=== PATIENT | female | born 1955 ===

== ENCOUNTER 2018-06-27 11:36 | Inpatient (IN) | payer MEDICARE, OTHER ==
[2018-06-27 11:37] VITALS: BMI 25.4
--- NOTE | 2018-06-27 12:34 | C.PDOC ---
History Of Present Illness 63 y/o female,w/PMhx of anemia, presents to the ER for low hemoglobin levels. Patient states that her PMD, , referred to the ER for possible blood transfusion. Patient reports that she was recently admitted in [facility] for similar symptoms. She notes that she currently undergoes dialysis on Mondays, Wednesdays, and Fridays. She states that she has some shortness of breath and feels tired.Denies having headache, dizziness, CP, fever, and chills. Time Seen by Provider: 06/27/18 12:07 Chief Complaint (Nursing): Abnormal Labs History Per: Patient History/Exam Limitations: no limitations Onset/Duration Of Symptoms: Days Current Symptoms Are (Timing): Still Present Severity: Moderate Reports Recently: Hospitalized (at [facility]) Past Medical History Reviewed: Historical Data, Nursing Documentation, Vital Signs Vital Signs: Last Vital Signs Temp 97.8 F 06/27/18 11:39 Pulse 95 H 06/27/18 11:39 Resp 18 06/27/18 11:39 BP 129/77 06/27/18 11:39 Pulse Ox 97 06/27/18 12:21 - Medical History PMH: Anemia, Anxiety, Arthritis, Bipolar Disorder, Colonic Polyps, Depression, Gastritis, HTN, Hypercholesterolemia, Hypothyroidism, Kidney Stones, Migraine, Chronic Kidney Disease Denies: Diabetes, Hepatitis Other Surgeries: Hx of surgeries - [facility] Procedures INDIVID PSYCHOTHERAP NEC (12/24/13) OTHER GROUP THERAPY (12/24/13) PACKED CELL TRANSFUSION (12/12/12) PSYCHIAT DRUG THERAP NEC (12/24/13) Family History: States: No Known Family Hx - Social History Hx Tobacco Use: No Hx Alcohol Use: No Hx Substance Use: No - Immunization History Hx Tetanus Toxoid Vaccination: No Hx Influenza Vaccination: No Hx Pneumococcal Vaccination: No Review Of Systems Except As Marked, All Systems Reviewed And Found Negative. Constitutional: Negative for: Fever, Chills Cardiovascular: Negative for: Chest Pain Respiratory: Positive for: Shortness of Breath Gastrointestinal: Negative for: Nausea, Vomiting Neurological: Positive for: Weakness Physical Exam - Physical Exam Appears: Non-toxic, No Acute Distress Skin: Normal Color, Warm, Dry Head: Atraumatic, Normacephalic Eye(s): bilateral: Normal Inspection Nose: Normal Oral Mucosa: Moist Neck: Supple Chest: Symmetrical Cardiovascular: Rhythm Regular Respiratory: Normal Breath Sounds, No Rales, No Rhonchi, No Wheezing Gastrointestinal/Abdominal: Normal Exam, Soft, No Tenderness, No Guarding, No Rebound Extremity: Normal ROM Neurological/Psych: Oriented x3, Normal Speech Gait: Unable To Assess ED Course And Treatment - Laboratory Results Result Diagrams: 06/27/18 12:37 1218 12:37 Lab Interpretation: Abnormal O2 Sat by Pulse Oximetry: 97 (RA) Pulse Ox Interpretation: Normal Progress Note: Patient sent in for blood transfusion for low Hcg. Typed for 2 units blood Reassessment Condition: Unchanged - Physician Consult Information Physician Contacted: Madisyn Richey Outcome Of Conversation: admit Medical Decision Making Medical Decision Making: Plan: --Labs --ECG --CXR --UA Disposition Discussed With : Madisyn Richey Doctor Will See Patient In The: Hospital - Disposition Disposition: HOSPITALIZED Disposition Time: 14:00 Condition: STABLE - POA Present On Arrival: None - Clinical Impression Clinical Impression: Anemia, ESRD (end stage renal disease) - PA / ARTIST COLOR SEPARATION / Resident Statement MD/DO has reviewed & agrees with the documentation as recorded. - Scribe Statement The provider has reviewed the documentation as recorded by the Hilaria Rizzo Provider Attestation All medical record entries made by the Amadoibe were at my direction and personally dictated by me. I have reviewed the chart and agree that the record accurately reflects my personal performance of the history, physical exam, medical decision making, and the department course for this patient. I have also personally directed, reviewed, and agree with the discharge instructions and disposition.
--- NOTE | 2018-06-27 12:38 | RAD ---
Date of service: 06/27/2018 HISTORY: SOB COMPARISON: Chest radiograph 08/17/2014. FINDINGS: LUNGS: Diminished inspiratory volumes. Limited atelectasis or infiltrate has developed at the left base with linear atelectasis identified lateral to it. Remaining lung beck are clear. PLEURA: No significant pleural effusion identified, no pneumothorax apparent. CARDIOVASCULAR: No aortic atherosclerotic calcification present. Normal cardiac size. No pulmonary vascular congestion. OSSEOUS STRUCTURES: No significant abnormalities. VISUALIZED UPPER ABDOMEN: Normal. OTHER FINDINGS: None. IMPRESSION: Interval left basilar airspace disease with associated linear atelectasis laterally.
[2018-06-27 12:44] LABS: BASO % 0.8 % (0.0-2.0); EOS # 0.1 K/uL (0.0-0.7); EOS % 0.9 % (0.0-4.0); LYMPH # 0.6 K/uL (1.0-4.3); LYMPH % 10.2 % (20.0-40.0); MEAN CELL VOLUME 94.9 fL (81.0-99.0); MEAN CORPUSCULAR HEMOGLOBIN 30.8 pg (27.0-31.0); MEAN CORPUSCULAR HGB CONC 32.5 g/dL (33.0-37.0); MEAN PLATELET VOLUME 9.9 fL (7.2-11.7); MONO # 0.3 K/uL (0.0-0.8); MONO % 5.9 % (0.0-10.0); NEUT # 4.9 K/uL (1.8-7.0); NEUT % 82.2 % (50.0-75.0); NRBC % 0.1 % (0.0-2.0); RBC 1.99 Mil/uL (3.80-5.20); RED CELL DISTRIBUTION WIDTH 15.5 % (11.5-14.5)
[2018-06-27 12:52] LABS: HEMOGLOBIN 6.1 g/dL (11.0-16.0)
[2018-06-27 12:54] LABS: ALB/GLOB RATIO 0.7 (1.0-2.1); ALBUMIN 3.1 g/dL (3.5-5.0); CALCIUM 8.1 mg/dl (8.6-10.4)
[2018-06-27 14:26] LABS: SQUAMOUS EPITHIAL 36 /hpf (0-5); URINE BACTERIA OCC (<OCC); URINE BILIRUBIN NEGATIVE (NEGATIVE); URINE BLOOD NEGATIVE (NEGATIVE); URINE CLARITY Hazy (Clear); URINE COLOR Yellow (YELLOW); URINE GLUCOSE (UA) NORMAL (Normal); URINE LEUKOCYTE ESTERASE 3+ Leu/uL (Negative); URINE PROTEIN 2+ mg/dL (NEGATIVE); URINE UROBILINOGEN NORMAL mg/dL (0.2-1.0)
--- NOTE | 2018-06-27 16:28 | CP.PCM.HP ---
History of Present Illness - History of Present Illness History of Present Illness: cc; Anemia HPI: I called patient to come to the hospital after a blood test that showed her hemoglobin to be 6. Pt was recently admittted to [facility] for urosepsis of a multidrugresistant organism. Pt was treated for two weeks with Metropenem. Pt reports she has been feeling very weak. Pt reports feeling fatigued, unsteady on her feet and some sob. PT denies blood in stool. She does not know what her hemoglobin was on discharge from [facility]. PHMX: Chronic Kidney disease Hypertension Hypercholesterolemia Anxiety Depression Splenomegaly Insomnia Peripheral vascular disease Diabetes Anemia Hypothyroidsm Thrombocytopenia Enlarge spleen Surgical Hx: Gastric Bypass Family Hx: Mother-Diabetes Father: [place] Sister: Parkinson Social Hx: Neg Smoke Neg ETOH Neg drugs Allergies: Iodine Medications: Atorvastatin 40 qd Famotidine 20 qd Renvela 800 tid Seroquel 300 qd Nephrocaps 1 qd Calcitrol 0.5 mcg qd flagyl 500 tid Cipro 250 bid Restoril 15 qhs Cholecalciferol 1 weekly bystolic 2.5 qd Neurontin 300 tid Levothyroxine 75 mcg qd Present on Admission - Present on Admission Any Indicators Present on Admission: No Review of Systems - Constitutional Constitutional: Fatigue, Malaise - EENT Eyes: absent: Blurred Vision Nose/Mouth/Throat: absent: Nasal Congestion - Cardiovascular Cardiovascular: absent: Chest Pain, Chest Pain with Activity - Respiratory Respiratory: Dyspnea. absent: Cough, Hemoptysis - Gastrointestinal Gastrointestinal: absent: Abdominal Pain, Belching, Hematochezia, Melena, Nausea, Temesmus, Vomiting - Genitourinary Genitourinary: absent: Urinary Urgency - Reproductive: Female Reproductive:Female: Vaginal Discharge (brown vaginal discharge.) Past Patient History - Past Medical History & Family History Past Medical History?: Yes - Past Social History Smoking Status: Never Smoked - CARDIAC Hx Hypercholesterolemia: Yes Hx Hypertension: Yes - PULMONARY Hx Respiratory Disorders: No Hx Tuberculosis: No - NEUROLOGICAL Hx Migraine: Yes - HEENT Hx HEENT Problems: Yes - RENAL Hx Chronic Kidney Disease: Yes Hx Kidney Stones: Yes - ENDOCRINE/METABOLIC Hx Hypothyroidism: Yes - HEMATOLOGICAL/ONCOLOGICAL Hx Anemia: Yes - INTEGUMENTARY Hx Dermatological Problems: No - MUSCULOSKELETAL/RHEUMATOLOGICAL Hx Arthritis: Yes - GASTROINTESTINAL Hx Gastritis: Yes - PSYCHIATRIC Hx Anxiety: Yes Hx Bipolar Disorder: Yes Hx Depression: Yes Hx Substance Use: No - SURGICAL HISTORY Hx Surgeries: Yes Hx Arteriovenous Shunt: Yes - ANESTHESIA Hx Anesthesia: Yes Hx Anesthesia Reactions: No Hx Malignant Hyperthermia: No Meds Allergies/Adverse Reactions: Allergies Allergy/AdvReac Type Severity Reaction Status Date / Time acetaminophen [From Percocet] Allergy Mild RASH Verified 06/27/18 11:44 codeine Allergy Mild RASH Verified 06/27/18 11:44 iodine Allergy Mild RASH Verified 06/27/18 11:44 oxycodone [From Percocet] Allergy Mild RASH Verified 06/27/18 11:44 seafood Allergy Mild RASH Uncoded 06/27/18 11:44 Physical Exam - Constitutional Appears: Non-toxic, No Acute Distress, Chronically Ill - Eye Exam Eye Exam: Normal appearance - ENT Exam ENT Exam: Mucous Membranes Moist - Neck Exam Neck exam: Negative for: Lymphadenopathy - Respiratory Exam Respiratory Exam: Clear to Auscultation Bilateral, NORMAL BREATHING PATTERN. absent: Accessory Muscle Use, Rales - Cardiovascular Exam Cardiovascular Exam: REGULAR RHYTHM, RRR, +S1, +S2. absent: JVD, Rubs - GI/Abdominal Exam GI & Abdominal Exam: Normal Bowel Sounds, Soft. absent: Tenderness - Rectal Exam Rectal Exam: absent: Black Stool, Bloody Stool - Extremities Exam Extremities exam: Positive for: normal inspection. Negative for: joint swelling, tenderness Results - Vital Signs Recent Vital Signs: Last Vital Signs Temp 98.3 F 06/27/18 15:00 Pulse 93 H 06/27/18 15:00 Resp 20 06/27/18 15:00 BP 123/73 06/27/18 15:00 Pulse Ox 98 06/27/18 15:00 - Labs Result Diagrams: 06/27/18 12:37 06/27/18 12:37 Labs: Laboratory Results - last 24 hr 06/27/18 06/27/18 06/27/18 12:37 12:37 12:37 WBC 6.0 RBC 1.99 L Hgb 6.1 L* D Hct 18.9 L MCV 94.9 MCH 30.8 MCHC 32.5 L RDW 15.5 H Plt Count 138 MPV 9.9 Neut % (Auto) 82.2 H Lymph % (Auto) 10.2 L [place] % (Auto) 5.9 Eos % (Auto) 0.9 Baso % (Auto) 0.8 Neut # (Auto) 4.9 Lymph # (Auto) 0.6 L [place] # (Auto) 0.3 Eos # (Auto) 0.1 Baso # (Auto) 0.0 Sodium 135 Potassium 3.9 Chloride 94 L Carbon Dioxide 29 Anion Gap 17 BUN 27 H Creatinine 6.2 H Est GFR ( Amer) 8 Est GFR (Non-Af Amer) 7 Random Glucose 107 H Calcium 8.1 L Total Bilirubin 0.8 AST 19 ALT 12 Alkaline Phosphatase 78 Total Protein 7.3 Albumin 3.1 L D Globulin 4.2 H Albumin/Globulin Ratio 0.7 L Urine Color Urine Clarity Urine pH Ur Specific [place] Urine Protein Urine Glucose (UA) Urine Ketones Urine Blood Urine Nitrate Urine Bilirubin Urine Urobilinogen Ur Leukocyte Esterase Urine WBC (Auto) Urine RBC (Auto) Ur Squamous Epith Cells Urine Bacteria Blood Type AB POSITIVE Antibody Screen Negative 06/27/18 14:10 WBC RBC Hgb Hct MCV MCH MCHC RDW Plt Count MPV Neut % (Auto) Lymph % (Auto) [place] % (Auto) Eos % (Auto) Baso % (Auto) Neut # (Auto) Lymph # (Auto) [place] # (Auto) Eos # (Auto) Baso # (Auto) Sodium Potassium Chloride Carbon Dioxide Anion Gap BUN Creatinine Est GFR ( Amer) Est GFR (Non-Af Amer) Random Glucose Calcium Total Bilirubin AST ALT Alkaline Phosphatase Total Protein Albumin Globulin Albumin/Globulin Ratio Urine Color Yellow Urine Clarity Hazy Urine pH 8.0 Ur Specific [place] 1.004 Urine Protein 2+ H Urine Glucose (UA) Normal Urine Ketones Negative Urine Blood Negative Urine Nitrate Negative Urine Bilirubin Negative Urine Urobilinogen Normal Ur Leukocyte Esterase 3+ H Urine WBC (Auto) 108 H Urine RBC (Auto) 3 Ur Squamous Epith Cells 36 H Urine Bacteria Occ H Blood Type Antibody Screen Assessment & Plan - Assessment and Plan (Free Text) Assessment: severe symptomatic anemia with hemoglobin of 6 admit transfuse during diallyisis hematology eval guia iron and b12 studies ( pt wth ho gastric sleeve) bp diabetes renal cont current care vaginitis flagyl urine; colonized recent two weeks of iv metropenan at [facility]
--- NOTE | 2018-06-27 17:35 | CP.PCM.CON ---
History of Present Illness - History of Present Illness History of Present Illness: Nephrology Consultation Note: Assessment: Stable Severe symptomatic Anemia Hypertensive Chronic Kidney Disease (I12.0) End stage renal disease (N18.6) dependence on hemodialysis (Z99.2) (MWF) via AVF Anemia (D64.9), Hyperphosphatemia (E83.39), Secondary Hyperparathyroidism (E21.1), HTN (I12.0) Plan: Will plan for HD today as ordered. Continue with Nephrovite 1 tab/day. PRBC as needed for anemia. added on ZENA with dialysis as last Hb 6. anemia work up as ordered. heme consult pending. may need GI input too Continue with phos binders, last phos level; check Continue with calcitriol daily BP control with meds as ordered. Patient not on RAAS beba may add if needed Glycemic control, Dialysis consistent diet Further work up/management as per primary team Dose meds/antibiotics (if needed) for ESRD status. Avoid fleets enema/magnesium based laxatives. Thanks for allowing me to participate in care of your patient. Will follow patient with you. Please call if any Qs Dr Alcon Prabhakar Office: [phone] Chief Complaint;anemia HPI: Pt is a 63 F with hx of ESRD on hemodialysis (MWF) via AVF , last dialysis mon, chronic anemia, hyperphosphatemia, secondary hyperparathyroidism, hyper tension presented with complaints of anemnia Renal consult requested for ESRD management. pt was rcently admitted to [facility] for MDR UTI ROS: feels fatigued and tired Cardiovascular: No chest pain. Pulmonary: c/o shortness of breath on exertion Gastrointestinal: denies abdominal pain No nausea. No vomiting. Genitourinary: No pain while urinating. Denies blood in urine. All other negative except as mentioned in HPI Physical Examination: General Appearance: Comfortable, in no acute respiratory distress, co-operative . obese Vitals reviewed and noted as below Head; Atraumatic, normocephalic ENT: no ulcers no thrush. Tongue is midline. Oropharynx: no rash or ulcers. EYES: Pupils are equal, round and reactive to light accommodation. Eye muscles and extraocular movement intact. Sclera is anicteric. Neck; supple no lymphadenopathy, no thyromegaly or bruit Lungs: Normal respiratory rate/effort. Breath sounds bilateral equal and clear Heart: Normal rate. s1s2 normal. No rub or gallop. Extremities: no edema. No varicose veins Neurological: Patient is alert, awake and oriented to person, place and time. No focal deficit. Strength bilateral appropriate and equal Skin: Warm and dry. Normal turgor. No rash. Palpitation: Normal elasticity for age Abdomen: Abdomen is soft. Bowel sounds +. There is no abdominal tenderness, no guarding/rigidity or organomegaly Psych: normal insight and normal affect/mood MSK: no joint tenderness or swelling. Digits and nails normal, no deformity : kidney or bladder not palpable Access: AVF Labs/imaging reviewed. Past medical history, past surgical history, family history, social history, allergy reviewed and noted as below Family Hx: family hx of HD + but pt not aware about reason. rest Non contributory Past Patient History - Past Medical History & Family History Past Medical History?: Yes - Past Social History Smoking Status: Never Smoked - CARDIAC Hx Hypercholesterolemia: Yes Hx Hypertension: Yes - PULMONARY Hx Respiratory Disorders: No Hx Tuberculosis: No - NEUROLOGICAL Hx Migraine: Yes - HEENT Hx HEENT Problems: Yes - RENAL Hx Chronic Kidney Disease: Yes Hx Kidney Stones: Yes - ENDOCRINE/METABOLIC Hx Hypothyroidism: Yes - HEMATOLOGICAL/ONCOLOGICAL Hx Anemia: Yes - INTEGUMENTARY Hx Dermatological Problems: No - MUSCULOSKELETAL/RHEUMATOLOGICAL Hx Arthritis: Yes - GASTROINTESTINAL Hx Gastritis: Yes - PSYCHIATRIC Hx Anxiety: Yes Hx Bipolar Disorder: Yes Hx Depression: Yes Hx Substance Use: No - SURGICAL HISTORY Hx Surgeries: Yes Hx Arteriovenous Shunt: Yes - ANESTHESIA Hx Anesthesia: Yes Hx Anesthesia Reactions: No Hx Malignant Hyperthermia: No Meds Allergies/Adverse Reactions: Allergies Allergy/AdvReac Type Severity Reaction Status Date / Time acetaminophen [From Percocet] Allergy Mild RASH Verified 06/27/18 11:44 codeine Allergy Mild RASH Verified 06/27/18 11:44 iodine Allergy Mild RASH Verified 06/27/18 11:44 oxycodone [From Percocet] Allergy Mild RASH Verified 06/27/18 11:44 seafood Allergy Mild RASH Uncoded 06/27/18 11:44 - Medications Medications: Current Medications Diphenhydramine HCl (Benadryl) 25 mg PO ONCE PRN PRN Reason: premedication transfusion Results - Vital Signs Recent Vital Signs: Last Vital Signs Temp 98.3 F 06/27/18 15:00 Pulse 93 H 06/27/18 15:00 Resp 20 06/27/18 15:00 BP 123/73 06/27/18 15:00 Pulse Ox 98 06/27/18 15:00 - Labs Result Diagrams: 06/27/18 12:37 06/27/18 12:37 Labs: Laboratory Results - last 24 hr 06/27/18 06/27/18 06/27/18 12:37 12:37 12:37 WBC 6.0 RBC 1.99 L Hgb 6.1 L* D Hct 18.9 L MCV 94.9 MCH 30.8 MCHC 32.5 L RDW 15.5 H Plt Count 138 MPV 9.9 Neut % (Auto) 82.2 H Lymph % (Auto) 10.2 L [place] % (Auto) 5.9 Eos % (Auto) 0.9 Baso % (Auto) 0.8 Neut # (Auto) 4.9 Lymph # (Auto) 0.6 L [place] # (Auto) 0.3 Eos # (Auto) 0.1 Baso # (Auto) 0.0 Sodium 135 Potassium 3.9 Chloride 94 L Carbon Dioxide 29 Anion Gap 17 BUN 27 H Creatinine 6.2 H Est GFR ( Amer) 8 Est GFR (Non-Af Amer) 7 Random Glucose 107 H Calcium 8.1 L Total Bilirubin 0.8 AST 19 ALT 12 Alkaline Phosphatase 78 Total Protein 7.3 Albumin 3.1 L D Globulin 4.2 H Albumin/Globulin Ratio 0.7 L Urine Color Urine Clarity Urine pH Ur Specific [place] Urine Protein Urine Glucose (UA) Urine Ketones Urine Blood Urine Nitrate Urine Bilirubin Urine Urobilinogen Ur Leukocyte Esterase Urine WBC (Auto) Urine RBC (Auto) Ur Squamous Epith Cells Urine Bacteria Blood Type AB POSITIVE Antibody Screen Negative 06/27/18 14:10 WBC RBC Hgb Hct MCV MCH MCHC RDW Plt Count MPV Neut % (Auto) Lymph % (Auto) [place] % (Auto) Eos % (Auto) Baso % (Auto) Neut # (Auto) Lymph # (Auto) [place] # (Auto) Eos # (Auto) Baso # (Auto) Sodium Potassium Chloride Carbon Dioxide Anion Gap BUN Creatinine Est GFR ( Amer) Est GFR (Non-Af Amer) Random Glucose Calcium Total Bilirubin AST ALT Alkaline Phosphatase Total Protein Albumin Globulin Albumin/Globulin Ratio Urine Color Yellow Urine Clarity Hazy Urine pH 8.0 Ur Specific [place] 1.004 Urine Protein 2+ H Urine Glucose (UA) Normal Urine Ketones Negative Urine Blood Negative Urine Nitrate Negative Urine Bilirubin Negative Urine Urobilinogen Normal Ur Leukocyte Esterase 3+ H Urine WBC (Auto) 108 H Urine RBC (Auto) 3 Ur Squamous Epith Cells 36 H Urine Bacteria Occ H Blood Type Antibody Screen
--- NOTE | 2018-06-27 17:41 | CP.PCM.PN ---
Subjective - Date & Time of Evaluation Date of Evaluation: 06/27/18 Time of Evaluation: 17:40 - Subjective Subjective: DIALYSIS NOTE pt seen during HD tolerating dialysis well getting PRBC during HD epogen with HD anemia work up as ordered d/w dialysis nursing staff Objective - Vital Signs/Intake and Output Vital Signs (last 24 hours): Temp Pulse Resp BP Pulse Ox 97.9 F 77 18 138/87 100 06/27/18 17:17 06/27/18 17:17 06/27/18 17:17 06/27/18 17:17 06/27/18 17:15 Intake and Output: 06/27/18 06/27/18 06:59 18:59 Intake Total 0 Balance 0 - Medications Medications: Current Medications Calcitriol (Rocaltrol) 0.5 mcg PO DAILY [facility] Diphenhydramine HCl (Benadryl) 25 mg PO ONCE PRN PRN Reason: premedication transfusion Last Admin: 06/27/18 17:00 Dose: 25 mg Epoetin Zeke (Procrit) 20,000 unit IV MWF [facility] Ferrous Sulfate (Feosol) 325 mg PO DAILY [facility] Folic Acid (Folic Acid) 1 mg PO DAILY [facility] Home Med (Mv-Mins No.50/Iron,Carb/Folic [Vol-Tab Rx Tablet]) 1 tab PO DAILY [facility] Home Med (Nebivolol Hcl [Bystolic]) 2.5 mg PO DAILY [facility] Levothyroxine Sodium (Synthroid) 75 mcg PO DAILY@0630 [facility] Magnesium Oxide (Mag-Ox) 400 mg PO DAILY [facility] Metronidazole (Flagyl) 500 mg PO Q8 [facility]; Protocol Rosuvastatin Calcium (Crestor) 10 mg PO HS [facility] Sevelamer Carbonate (Renvela) 800 mg PO BID [facility] Venlafaxine HCl (Effexor Xr) 150 mg PO DAILY [facility] - Labs Labs: 06/27/18 12:37 06/27/18 12:37
[2018-06-27 18:48] LABS: IRON 43 ug/dL (37-170)
[2018-06-27 18:58] LABS: % IRON SATURATION 27 (20-55); TOTAL IRON BINDING CAPACITY 161 ug/dL (250-450)
[2018-06-27] MEDS: Epoetin Alfa Dialysis 20000 UNIT/ML Inj IV SCH (19:31)
[2018-06-27 19:40] LABS: FOLATE 5.9 ng/mL
[2018-06-27 20:15] LABS: HEPATITIS B SURFACE AG Negative (NEGATIVE)
[2018-06-27 20:33] LABS: HEPATITIS C ANTIBODY NEGATIVE (NEGATIVE)
[2018-06-28] MEDS: Levothyroxine 75 MCG TAB PO SCH (06:17)
[2018-06-28 06:47] LABS: HEMOGLOBIN 8.3 g/dL (11.0-16.0); MEAN CELL VOLUME 92.3 fL (81.0-99.0); MEAN CORPUSCULAR HEMOGLOBIN 30.9 pg (27.0-31.0); MEAN CORPUSCULAR HGB CONC 33.5 g/dL (33.0-37.0); MEAN PLATELET VOLUME 9.1 fL (7.2-11.7); RBC 2.68 Mil/uL (3.80-5.20); RED CELL DISTRIBUTION WIDTH 16.2 % (11.5-14.5); WHITE BLOOD COUNT 7.6 K/uL (4.8-10.8)
[2018-06-28] MEDS: Magnesium Oxide 400 mg Tab UD PO SCH (09:33)
[2018-06-28] MEDS: Venlafaxine 150 mg ER Cap PO SCH (09:33)
--- NOTE | 2018-06-28 10:54 | CARD ---
APPROVED REPORT Date of service: 06/27/2018 EKG Measurement Heart [id number] <Conclusion> Normal sinus rhythm Normal ECG
--- NOTE | 2018-06-28 12:10 | CP.PCM.PN ---
Subjective - Date & Time of Evaluation Date of Evaluation: 06/28/18 Time of Evaluation: 12:08 - Subjective Subjective: Nephrology Consultation Note: Assessment: Stable Severe symptomatic Anemia Hypertensive Chronic Kidney Disease (I12.0) End stage renal disease (N18.6) dependence on hemodialysis (Z99.2) (MWF) via AVF Anemia (D64.9), Hyperphosphatemia (E83.39), Secondary Hyperparathyroidism (E21.1), HTN (I12.0) Plan: Will plan for HD MWF as ordered. Continue with Nephrovite 1 tab/day. PRBC as needed for anemia. added on ZENA with dialysis as last Hb 6. anemia work up as ordered. heme consult pending. may need GI input too. no IV iron ordered d ue to high ferritin Continue with phos binders, last phos level; check Continue with calcitriol daily BP control with meds as ordered. Patient not on RAAS beba may add if needed Glycemic control, Dialysis consistent diet Further work up/management as per primary team Dose meds/antibiotics (if needed) for ESRD status. Avoid fleets enema/magnesium based laxatives. dulcolax 10 mg today Thanks for allowing me to participate in care of your patient. Will follow patient with you. Please call if any Qs Dr Alcon Prabhakar Office: [phone] Chief Complaint;anemia HPI: Pt is a 63 F with hx of ESRD on hemodialysis (MWF) via AVF , last dialysis mon, chronic anemia, hyperphosphatemia, secondary hyperparathyroidism, hypertension presented with complaints of anemnia Renal consult requested for ESRD management. pt was recently admitted to [facility] for [place] UTI ROS: feels better Cardiovascular: No chest pain. Pulmonary: no shortness of breath Gastrointestinal: c/o abdominal pain with last BM 2 days ago No nausea. No vomiting. Genitourinary: No pain while urinating. Denies blood in urine. All other negative except as mentioned in HPI Physical Examination: General Appearance: Comfortable, in no acute respiratory distress, co-operative . obese Vitals reviewed and noted as below Head; Atraumatic, normocephalic ENT: no ulcers no thrush. Tongue is midline. Oropharynx: no rash or ulcers. EYES: Pupils are equal, round and reactive to light accommodation. Eye muscles and extraocular movement intact. Sclera is anicteric. Neck; supple no lymphadenopathy, no thyromegaly or bruit Lungs: Normal respiratory rate/effort. Breath sounds bilateral equal and clear Heart: Normal rate. s1s2 normal. No rub or gallop. Extremities: no edema. No varicose veins Neurological: Patient is alert, awake and oriented to person, place and time. No focal deficit. Strength bilateral appropriate and equal Skin: Warm and dry. Normal turgor. No rash. Palpitation: Normal elasticity for age Abdomen: Abdomen is soft. Bowel sounds +. There is mild LLq abdominal tenderness , no guarding/rigidity or organomegaly Psych: normal insight and normal affect/mood MSK: no joint tenderness or swelling. Digits and nails normal, no deformity : kidney or bladder not palpable Access: AVF Labs/imaging reviewed. Past medical history, past surgical history, family history, social history, allergy reviewed and noted as below Family Hx: family hx of HD + but pt not aware about reason. rest Non contributory Objective - Vital Signs/Intake and Output Vital Signs (last 24 hours): Temp Pulse Resp BP Pulse Ox 98.3 F 82 20 134/81 95 06/28/18 07:25 06/28/18 09:35 06/28/18 07:25 06/28/18 09:35 06/28/18 07:25 Intake and Output: 06/28/18 06/28/18 06:59 18:59 Intake Total 325 Balance 325 - Medications Medications: Current Medications Acetaminophen (Tylenol 325mg Tab) 650 mg PO Q6 PRN PRN Reason: Pain, moderate (4-7) Last Admin: 06/28/18 11:49 Dose: 650 mg Calcitriol (Rocaltrol) 0.5 mcg PO DAILY [facility] Last Admin: 06/28/18 09:33 Dose: 0.5 mcg Diphenhydramine HCl (Benadryl) 25 mg PO ONCE PRN PRN Reason: premedication transfusion Last Admin: 06/27/18 17:00 Dose: 25 mg Epoetin Zeke (Procrit) 20,000 unit IV MWF [facility] Last Admin: 06/27/18 19:31 Dose: 20,000 unit Ferrous Sulfate (Feosol) 325 mg PO DAILY [facility] Last Admin: 06/28/18 09:32 Dose: 325 mg Folic Acid (Folic Acid) 1 mg PO DAILY [facility] Last Admin: 06/28/18 09:32 Dose: 1 mg Home Med (Mv-Mins No.50/Iron,Carb/Folic [Vol-Tab Rx Tablet]) 1 tab PO DAILY [facility] Levothyroxine Sodium (Synthroid) 75 mcg PO DAILY@0630 [facility] Last Admin: 06/28/18 06:17 Dose: 75 mcg Magnesium Oxide (Mag-Ox) 400 mg PO DAILY [facility] Last Admin: 06/28/18 09:33 Dose: 400 mg Metronidazole (Flagyl) 500 mg PO Q8 [facility]; Protocol Last Admin: 06/28/18 06:17 Dose: 500 mg Nebivolol (Bystolic) 2.5 mg PO DAILY [facility] Last Admin: 06/28/18 09:33 Dose: 2.5 mg Quetiapine Fumarate (Seroquel) 200 mg PO HS [facility] Rosuvastatin Calcium (Crestor) 10 mg PO HS [facility] Last Admin: 06/27/18 21:46 Dose: 10 mg Sevelamer Carbonate (Renvela) 800 mg PO BID [facility] Last Admin: 06/28/18 09:33 Dose: 800 mg Venlafaxine HCl (Effexor Xr) 150 mg PO DAILY [facility] Last Admin: 06/28/18 09:33 Dose: 150 mg Zolpidem Tartrate (Ambien) 5 mg PO HS PRN PRN Reason: Insomnia - Labs Labs: 06/28/18 06:40 06/27/18 12:37
[2018-06-28] MEDS ORDERED: Bisacodyl 5mg EC Tab PO PRN (12:50)
[2018-06-28] MEDS ORDERED: Bisacodyl 5mg EC Tab PO ONE (12:51)
--- NOTE | 2018-06-28 13:53 | CP.PCM.PN ---
Subjective - Date & Time of Evaluation Date of Evaluation: 06/28/18 Time of Evaluation: 09:00 - Subjective Subjective: Pt feeling a lot better this AM pt had two units prbc with dialyisis states she had endoscopies with dr. Spencer two years ago Objective - Vital Signs/Intake and Output Vital Signs (last 24 hours): Temp Pulse Resp BP Pulse Ox 98.3 F 82 20 134/81 95 06/28/18 07:25 06/28/18 09:35 06/28/18 07:25 06/28/18 09:35 06/28/18 07:25 Intake and Output: 06/28/18 06/28/18 06:59 18:59 Intake Total 325 Balance 325 - Medications Medications: Current Medications Acetaminophen (Tylenol 325mg Tab) 650 mg PO Q6 PRN PRN Reason: Pain, moderate (4-7) Last Admin: 06/28/18 11:49 Dose: 650 mg Calcitriol (Rocaltrol) 0.5 mcg PO DAILY [facility] Last Admin: 06/28/18 09:33 Dose: 0.5 mcg Diphenhydramine HCl (Benadryl) 25 mg PO ONCE PRN PRN Reason: premedication transfusion Last Admin: 06/27/18 17:00 Dose: 25 mg Epoetin Zeke (Procrit) 20,000 unit IV MWF [facility] Last Admin: 06/27/18 19:31 Dose: 20,000 unit Ferrous Sulfate (Feosol) 325 mg PO DAILY [facility] Last Admin: 06/28/18 09:32 Dose: 325 mg Folic Acid (Folic Acid) 1 mg PO DAILY [facility] Last Admin: 06/28/18 09:32 Dose: 1 mg Levothyroxine Sodium (Synthroid) 75 mcg PO DAILY@0630 [facility] Last Admin: 06/28/18 06:17 Dose: 75 mcg Magnesium Oxide (Mag-Ox) 400 mg PO DAILY [facility] Last Admin: 06/28/18 09:33 Dose: 400 mg Metronidazole (Flagyl) 500 mg PO Q8 [facility]; Protocol Last Admin: 06/28/18 13:25 Dose: 500 mg Multivitamins/Minerals (Therapeutic-M Tab) 1 tab PO DAILY [facility] Nebivolol (Bystolic) 2.5 mg PO DAILY [facility] Last Admin: 06/28/18 09:33 Dose: 2.5 mg Quetiapine Fumarate (Seroquel) 200 mg PO HS [facility] Rosuvastatin Calcium (Crestor) 10 mg PO HS [facility] Last Admin: 06/27/18 21:46 Dose: 10 mg Sevelamer Carbonate (Renvela) 800 mg PO BID [facility] Last Admin: 06/28/18 09:33 Dose: 800 mg Venlafaxine HCl (Effexor Xr) 150 mg PO DAILY [facility] Last Admin: 06/28/18 09:33 Dose: 150 mg Zolpidem Tartrate (Ambien) 5 mg PO HS PRN PRN Reason: Insomnia - Labs Labs: 06/28/18 06:40 06/27/18 12:37 - Constitutional Appears: Non-toxic - Eye Exam Eye Exam: Normal appearance - ENT Exam ENT Exam: Mucous Membranes Moist - Respiratory Exam Respiratory Exam: Clear to Ausculation Bilateral - GI/Abdominal Exam GI & Abdominal Exam: Soft. absent: Tenderness Assessment and Plan - Assessment and Plan (Free Text) Assessment: anemia does not appear to be iron def likely multifactorial bp stable renal on HD awaiting for heme eval cbc in Am if stable dc home
[2018-06-28] MEDS: Multivitamin With Minerals Tab PO SCH (14:55)
--- NOTE | 2018-06-28 14:59 | CP.PCM.CON ---
History of Present Illness - History of Present Illness History of Present Illness: This is a 63 year old woman with anemia. Patient has a history of ESRD on hemodialysis. She was sent to the ER when routine blood work showed HGB 6.0. She denies having diarrhea, constipation, and rectal bleeding. She denies having nausea, vomiting, heartburn, difficulty swallowing and loss of appetite. She lost more than sixty pounds after lap band (2007) and gastric bypass (2010). She was recently hospitalized at [facility] [place] for a UTI with a multiply-resistant organism. Since yesterday, she has complained of lower abdominal pain, vague, constant. Review of Systems - Review of Systems All systems: reviewed and no additional remarkable complaints except - Constitutional Constitutional: Fatigue. absent: Chills, Fever - EENT Eyes: absent: Blurred Vision - Cardiovascular Cardiovascular: Dyspnea. absent: Chest Pain - Respiratory Respiratory: Dyspnea. absent: Cough, Hemoptysis - Gastrointestinal Gastrointestinal: absent: Abdominal Pain, Dysphagia, Heartburn, Hematochezia, Melena, Nausea, Vomiting - Genitourinary Genitourinary: absent: Urinary Urgency Past Patient History - Past Medical History & Family History Past Medical History?: Yes - Past Social History Smoking Status: Never Smoked - CARDIAC Hx Hypercholesterolemia: Yes Hx Hypertension: Yes - PULMONARY Hx Respiratory Disorders: No Hx Tuberculosis: No - NEUROLOGICAL Hx Migraine: Yes - HEENT Hx HEENT Problems: Yes - RENAL Hx Chronic Kidney Disease: Yes Hx Kidney Stones: Yes - ENDOCRINE/METABOLIC Hx Hypothyroidism: Yes - HEMATOLOGICAL/ONCOLOGICAL Hx Anemia: Yes - INTEGUMENTARY Hx Dermatological Problems: No - MUSCULOSKELETAL/RHEUMATOLOGICAL Hx Arthritis: Yes - GASTROINTESTINAL Hx Gastritis: Yes - PSYCHIATRIC Hx Anxiety: Yes Hx Bipolar Disorder: Yes Hx Depression: Yes Hx Substance Use: No - SURGICAL HISTORY Hx Surgeries: Yes Hx Arteriovenous Shunt: Yes - ANESTHESIA Hx Anesthesia: Yes Hx Anesthesia Reactions: No Hx Malignant Hyperthermia: No Meds Allergies/Adverse Reactions: Allergies Allergy/AdvReac Type Severity Reaction Status Date / Time codeine Allergy Mild RASH Verified 06/27/18 11:44 iodine Allergy Mild RASH Verified 06/27/18 11:44 oxycodone [From Percocet] Allergy Mild RASH Verified 06/27/18 11:44 seafood Allergy Mild RASH Uncoded 06/27/18 11:44 - Medications Medications: Current Medications Acetaminophen (Tylenol 325mg Tab) 650 mg PO Q6 PRN PRN Reason: Pain, moderate (4-7) Last Admin: 06/28/18 11:49 Dose: 650 mg Calcitriol (Rocaltrol) 0.5 mcg PO DAILY [facility] Last Admin: 06/28/18 09:33 Dose: 0.5 mcg Diphenhydramine HCl (Benadryl) 25 mg PO ONCE PRN PRN Reason: premedication transfusion Last Admin: 06/27/18 17:00 Dose: 25 mg Epoetin Zeke (Procrit) 20,000 unit IV MWF [facility] Last Admin: 06/27/18 19:31 Dose: 20,000 unit Ferrous Sulfate (Feosol) 325 mg PO DAILY [facility] Last Admin: 06/28/18 09:32 Dose: 325 mg Folic Acid (Folic Acid) 1 mg PO DAILY [facility] Last Admin: 06/28/18 09:32 Dose: 1 mg Levothyroxine Sodium (Synthroid) 75 mcg PO DAILY@0630 [facility] Last Admin: 06/28/18 06:17 Dose: 75 mcg Magnesium Oxide (Mag-Ox) 400 mg PO DAILY [facility] Last Admin: 06/28/18 09:33 Dose: 400 mg Metronidazole (Flagyl) 500 mg PO Q8 [facility]; Protocol Last Admin: 06/28/18 13:25 Dose: 500 mg Multivitamins/Minerals (Therapeutic-M Tab) 1 tab PO DAILY [facility] Last Admin: 06/28/18 14:55 Dose: 1 tab Nebivolol (Bystolic) 2.5 mg PO DAILY [facility] Last Admin: 06/28/18 09:33 Dose: 2.5 mg Quetiapine Fumarate (Seroquel) [address] [facility] Rosuvastatin Calcium (Crestor) 10 mg PO HS [facility] Last Admin: 06/27/18 21:46 Dose: 10 mg Sevelamer Carbonate (Renvela) 800 mg PO BID [facility] Last Admin: 06/28/18 09:33 Dose: 800 mg Venlafaxine HCl (Effexor Xr) 150 mg PO DAILY [facility] Last Admin: 06/28/18 09:33 Dose: 150 mg Zolpidem Tartrate (Ambien) 5 mg PO HS PRN PRN Reason: Insomnia Physical Exam - Constitutional Appears: No Acute Distress - Head Exam Head Exam: ATRAUMATIC, NORMOCEPHALIC - Eye Exam Eye Exam: EOMI, PERRL - Neck Exam Neck exam: Negative for: Lymphadenopathy, Thyromegaly - Respiratory Exam Respiratory Exam: NORMAL BREATHING PATTERN. absent: Rales, Rhonchi, Wheezes - Cardiovascular Exam Cardiovascular Exam: REGULAR RHYTHM, +S1, +S2. absent: Gallop, Rubs, Systolic Murmur - GI/Abdominal Exam GI & Abdominal Exam: Normal Bowel Sounds, Soft. absent: Mass, Organomegaly, Tenderness - Rectal Exam Rectal Exam: Deferred - Extremities Exam Extremities exam: Negative for: calf tenderness, pedal edema Results - Vital Signs Recent Vital Signs: Last Vital Signs Temp 98.3 F 06/28/18 07:25 Pulse 82 06/28/18 09:35 Resp 20 06/28/18 07:25 BP 134/81 06/28/18 09:35 Pulse Ox 95 06/28/18 07:25 - Labs Result Diagrams: 06/28/18 06:40 06/27/18 12:37 Labs: Laboratory Results - last 24 hr 06/27/18 06/27/18 06/27/18 12:37 18:18 18:18 WBC RBC Hgb Hct MCV MCH MCHC RDW Plt Count MPV Iron 43 TIBC 161 L % Saturation 27 Ferritin 1520.0 Vitamin B12 > 1000 H Folate 5.9 Hep Bs Antigen Hep Bs Antibody Hepatitis C Antibody Blood Type AB POSITIVE Antibody Screen Negative 06/27/18 06/27/18 06/28/18 19:17 19:17 06:40 WBC 7.6 RBC 2.68 L Hgb 8.3 L D Hct 24.8 L MCV 92.3 D MCH 30.9 MCHC 33.5 RDW 16.2 H Plt Count 144 MPV 9.1 Iron TIBC % Saturation Ferritin Vitamin B12 Folate Hep Bs Antigen Negative Hep Bs Antibody Negative Hepatitis C Antibody Negative Blood Type Antibody Screen Assessment & Plan (1) Anemia Assessment and Plan: Patient has symptomatic anemia. The level of HGB is probably not explicable on the basis of kidney disease alone. Recommend colonoscopy and EGD, which can be done as an outpatient. Status: Acute
[2018-06-28] MEDS ORDERED: Iohexol 240 (50 ml) PO ONE (16:45)
--- NOTE | 2018-06-28 18:45 | CP.PCM.CON ---
History of Present Illness - History of Present Illness History of Present Illness: 63 yo woman with severe anemia, readmitted with c/o anemia, going for CAT scan. Plan- Check results of scan, ? new splenomegaly on scan in [facility]. Will check for hemolysis and send flow cytometry for lymphoma/leukemia. Bone marrow biopsy if splenomegaly found on CAT scan Past Patient History - Past Medical History & Family History Past Medical History?: Yes - Past Social History Smoking Status: Never Smoked - CARDIAC Hx Hypercholesterolemia: Yes Hx Hypertension: Yes - PULMONARY Hx Respiratory Disorders: No Hx Tuberculosis: No - NEUROLOGICAL Hx Migraine: Yes - HEENT Hx HEENT Problems: Yes - RENAL Hx Chronic Kidney Disease: Yes Hx Kidney Stones: Yes - ENDOCRINE/METABOLIC Hx Hypothyroidism: Yes - HEMATOLOGICAL/ONCOLOGICAL Hx Anemia: Yes - INTEGUMENTARY Hx Dermatological Problems: No - MUSCULOSKELETAL/RHEUMATOLOGICAL Hx Arthritis: Yes - GASTROINTESTINAL Hx Gastritis: Yes - PSYCHIATRIC Hx Anxiety: Yes Hx Bipolar Disorder: Yes Hx Depression: Yes Hx Substance Use: No - SURGICAL HISTORY Hx Surgeries: Yes Hx Arteriovenous Shunt: Yes - ANESTHESIA Hx Anesthesia: Yes Hx Anesthesia Reactions: No Hx Malignant Hyperthermia: No Meds Allergies/Adverse Reactions: Allergies Allergy/AdvReac Type Severity Reaction Status Date / Time codeine Allergy Mild RASH Verified 06/27/18 11:44 iodine Allergy Mild RASH Verified 06/27/18 11:44 oxycodone [From Percocet] Allergy Mild RASH Verified 06/27/18 11:44 seafood Allergy Mild RASH Uncoded 06/27/18 11:44 - Medications Medications: Current Medications Acetaminophen (Tylenol 325mg Tab) 650 mg PO Q6 PRN PRN Reason: Pain, moderate (4-7) Last Admin: 06/28/18 18:04 Dose: 650 mg Calcitriol (Rocaltrol) 0.5 mcg PO DAILY [facility] Last Admin: 06/28/18 09:33 Dose: 0.5 mcg Diphenhydramine HCl (Benadryl) 25 mg PO ONCE PRN PRN Reason: premedication transfusion Last Admin: 06/27/18 17:00 Dose: 25 mg Epoetin Zeke (Procrit) 20,000 unit IV MWF [facility] Last Admin: 06/27/18 19:31 Dose: 20,000 unit Ferrous Sulfate (Feosol) 325 mg PO DAILY [facility] Last Admin: 06/28/18 09:32 Dose: 325 mg Folic Acid (Folic Acid) 1 mg PO DAILY [facility] Last Admin: 06/28/18 09:32 Dose: 1 mg Levothyroxine Sodium (Synthroid) 75 mcg PO DAILY@0630 [facility] Last Admin: 06/28/18 06:17 Dose: 75 mcg Magnesium Oxide (Mag-Ox) 400 mg PO DAILY [facility] Last Admin: 06/28/18 09:33 Dose: 400 mg Metronidazole (Flagyl) 500 mg PO Q8 [facility]; Protocol Last Admin: 06/28/18 13:25 Dose: 500 mg Multivitamins/Minerals (Therapeutic-M Tab) 1 tab PO DAILY [facility] Last Admin: 06/28/18 14:55 Dose: 1 tab Nebivolol (Bystolic) 2.5 mg PO DAILY [facility] Last Admin: 06/28/18 09:33 Dose: 2.5 mg Quetiapine Fumarate (Seroquel) 200 mg PO HS [facility] Rosuvastatin Calcium (Crestor) 10 mg PO HS [facility] Last Admin: 06/27/18 21:46 Dose: 10 mg Sevelamer Carbonate (Renvela) 800 mg PO BID [facility] Last Admin: 06/28/18 18:04 Dose: Not Given Venlafaxine HCl (Effexor Xr) 150 mg PO DAILY [facility] Last Admin: 06/28/18 09:33 Dose: 150 mg Zolpidem Tartrate (Ambien) 5 mg PO HS PRN PRN Reason: Insomnia Results - Vital Signs Recent Vital Signs: Last Vital Signs Temp 97.9 F 06/28/18 15:00 Pulse 82 06/28/18 15:00 Resp 20 06/28/18 15:00 BP 155/83 H 06/28/18 15:00 Pulse Ox 97 06/28/18 15:00 - Labs Result Diagrams: 06/28/18 06:40 06/27/18 12:37 Labs: Laboratory Results - last 24 hr 06/27/18 06/27/18 06/27/18 18:18 18:18 19:17 WBC RBC Hgb Hct MCV MCH MCHC RDW Plt Count MPV Iron 43 TIBC 161 L % Saturation 27 Ferritin 1520.0 Vitamin B12 > 1000 H Folate 5.9 Hep Bs Antigen Negative Hep Bs Antibody Hepatitis C Antibody Negative 06/27/18 06/28/18 19:17 06:40 WBC 7.6 RBC 2.68 L Hgb 8.3 L D Hct 24.8 L MCV 92.3 D MCH 30.9 MCHC 33.5 RDW 16.2 H Plt Count 144 MPV 9.1 Iron TIBC % Saturation Ferritin Vitamin B12 Folate Hep Bs Antigen Hep Bs Antibody Negative Hepatitis C Antibody
[2018-06-29] MEDS: Levothyroxine 75 MCG TAB PO SCH (05:39)
--- NOTE | 2018-06-29 08:06 | CP.PCM.PN ---
Subjective - Date & Time of Evaluation Date of Evaluation: 06/29/18 Time of Evaluation: 08:04 - Subjective Subjective: Patient denies having nausea, vomiting, abdominal pain. She has not had a bowel movement this morning. Objective - Vital Signs/Intake and Output Vital Signs (last 24 hours): Temp Pulse Resp BP Pulse Ox 97.7 F 71 20 147/79 97 06/29/18 00:00 06/29/18 00:00 06/29/18 00:00 06/29/18 00:00 06/29/18 00:00 - Medications Medications: Current Medications Acetaminophen (Tylenol 325mg Tab) 650 mg PO Q6 PRN PRN Reason: Pain, moderate (4-7) Last Admin: 06/28/18 18:04 Dose: 650 mg Calcitriol (Rocaltrol) 0.5 mcg PO DAILY [facility] Last Admin: 06/28/18 09:33 Dose: 0.5 mcg Diphenhydramine HCl (Benadryl) 25 mg PO ONCE PRN PRN Reason: premedication transfusion Last Admin: 06/27/18 17:00 Dose: 25 mg Epoetin Zeke (Procrit) 20,000 unit IV MWF [facility] Last Admin: 06/27/18 19:31 Dose: 20,000 unit Ferrous Sulfate (Feosol) 325 mg PO DAILY [facility] Last Admin: 06/28/18 09:32 Dose: 325 mg Folic Acid (Folic Acid) 1 mg PO DAILY [facility] Last Admin: 06/28/18 09:32 Dose: 1 mg Levothyroxine Sodium (Synthroid) 75 mcg PO DAILY@0630 [facility] Last Admin: 06/29/18 05:39 Dose: 75 mcg Magnesium Oxide (Mag-Ox) 400 mg PO DAILY [facility] Last Admin: 06/28/18 09:33 Dose: 400 mg Metronidazole (Flagyl) 500 mg PO Q8 [facility]; Protocol Last Admin: 06/29/18 05:39 Dose: 500 mg Multivitamins/Minerals (Therapeutic-M Tab) 1 tab PO DAILY [facility] Last Admin: 06/28/18 14:55 Dose: 1 tab Nebivolol (Bystolic) 2.5 mg PO DAILY [facility] Last Admin: 06/28/18 09:33 Dose: 2.5 mg Quetiapine Fumarate (Seroquel) 200 mg PO HS [facility] Last Admin: 12/13/18 21:42 Dose: 200 mg Rosuvastatin Calcium (Crestor) 10 mg PO HS [facility] Last Admin: 06/28/18 21:42 Dose: 10 mg Sevelamer Carbonate (Renvela) 800 mg PO BID [facility] Last Admin: 06/28/18 18:04 Dose: Not Given Venlafaxine HCl (Effexor Xr) 150 mg PO DAILY [facility] Last Admin: 06/28/18 09:33 Dose: 150 mg Zolpidem Tartrate (Ambien) 5 mg PO HS PRN PRN Reason: Insomnia - Labs Labs: 06/28/18 06:40 06/27/18 12:37 - Constitutional Appears: No Acute Distress - Head Exam Head Exam: ATRAUMATIC, NORMOCEPHALIC - Eye Exam Eye Exam: EOMI, PERRL - Neck Exam Neck Exam: absent: Lymphadenopathy, Thyromegaly - Respiratory Exam Respiratory Exam: NORMAL BREATHING PATTERN. absent: Rales, Rhonchi, Wheezes - Cardiovascular Exam Cardiovascular Exam: REGULAR RHYTHM, +S1, +S2. absent: Gallop, Rubs, Murmur - GI/Abdominal Exam GI & Abdominal Exam: Soft, Normal Bowel Sounds. absent: Tenderness, Organomegaly - Rectal Exam Rectal Exam: Deferred - Extremities Exam Extremities Exam: absent: Calf Tenderness, Pedal Edema Assessment and Plan (1) Anemia Assessment & Plan: Patient denies having bleeding. HGB post transfusion is 8.3, MCV 92. Stool occult blood is pending. CT scan has not yet been read, but spleen appears to be enlarged. Plan is for EGD and colonoscopy, which can be performed as an outpatient if she will be discharged. Status: Acute
[2018-06-29 09:01] LABS: HEMOGLOBIN 8.9 g/dL (11.0-16.0); MEAN CELL VOLUME 93.9 fL (81.0-99.0); MEAN CORPUSCULAR HEMOGLOBIN 30.9 pg (27.0-31.0); MEAN CORPUSCULAR HGB CONC 32.9 g/dL (33.0-37.0); MEAN PLATELET VOLUME 9.2 fL (7.2-11.7); RBC 2.88 Mil/uL (3.80-5.20); RED CELL DISTRIBUTION WIDTH 16.1 % (11.5-14.5); WHITE BLOOD COUNT 7.7 K/uL (4.8-10.8)
--- NOTE | 2018-06-29 09:02 | CT ---
Date of service: 06/28/2018 PROCEDURE: CT Abdomen and Pelvis without intravenous contrast HISTORY: Abdominal pain, gastric bypass COMPARISON: Two thousand fifteen TECHNIQUE: Technique. Contrast dose: Radiation dose: Total exam DLP = 990.04 mGy-cm. This CT exam was performed using one or more of the following dose reduction techniques: Automated exposure control, adjustment of the mA and/or kV according to patient size, and/or use of iterative reconstruction technique. FINDINGS: LOWER THORAX: Left lower lobe infiltrate and pleural effusion. Status post gastric bypass surgery. LIVER: Unremarkable. No gross lesion or ductal dilatation. GALLBLADDER AND BILE DUCTS: Mildly distended. PANCREAS: Unremarkable. No gross lesion or ductal dilatation. SPLEEN: Splenomegaly ADRENALS: Unremarkable. No mass. KIDNEYS AND URETERS: Innumerable bilateral renal cysts, simple and complex consistent with polycystic kidney disease. VASCULATURE: Unremarkable. No aortic aneurysm. No aortic atherosclerotic calcification or mural plaque present. BOWEL: Unremarkable. No obstruction. No gross mural thickening. APPENDIX: Unremarkable. Normal appendix. PERITONEUM: Unremarkable. No free fluid. No free air. LYMPH NODES: Unremarkable. No enlarged lymph nodes. BLADDER: Unremarkable. REPRODUCTIVE: Unremarkable. BONES: No acute fracture. OTHER FINDINGS: None. IMPRESSION: Left lower lobe infiltrate and effusion. Polycystic kidney disease. Mildly distended gallbladder. Splenomegaly.
[2018-06-29] MEDS: Epoetin Alfa Dialysis 20000 UNIT/ML Inj IV SCH (11:16)
[2018-06-29 14:07] VITALS: RESP 18
--- NOTE | 2018-06-29 14:39 | CP.PCM.PN ---
Subjective - Date & Time of Evaluation Date of Evaluation: 06/29/18 Time of Evaluation: 14:38 - Subjective Subjective: Nephrology Consultation Note: Assessment: Stable Severe symptomatic Anemia Hypertensive Chronic Kidney Disease (I12.0) End stage renal disease (N18.6) dependence on hemodialysis (Z99.2) (MWF) via AVF Anemia (D64.9), Hyperphosphatemia (E83.39), Secondary Hyperparathyroidism (E21.1), HTN (I12.0) PCKD splenomegaly Plan: Will plan for HD MWF as ordered. Continue with Nephrovite 1 tab/day. PRBC as needed for anemia. added on ZENA with dialysis as last Hb 6. anemia work up as ordered. heme/GI consult noted. no IV iron ordered due to high ferritin Continue with phos binders, last phos level; check Continue with calcitriol daily BP control with meds as ordered. Patient not on RAAS beba may add if needed Glycemic control, Dialysis consistent diet Further work up/management as per primary team Dose meds/antibiotics (if needed) for ESRD status. Avoid fleets enema/magnesium based laxatives. pt stable from renal perspective Thanks for allowing me to participate in care of your patient. Will follow patient with you. Please call if any Qs Dr Alcon Prabhakar Office: [phone] Chief Complaint;anemia HPI: Pt is a 63 F with hx of ESRD on hemodialysis (MWF) via AVF , last dialysis mon, chronic anemia, hyperphosphatemia, secondary hyperparathyroidism, hypertension presented with complaints of anemnia Renal consult requested for ESRD management. pt was recently admitted to [facility] – [place], [place] for MDR UTI ROS: feels better Cardiovascular: No chest pain. Pulmonary: no shortness of breath Gastrointestinal: denies abdominal pain No nausea. No vomiting. Genitourinary: No pain while urinating. Denies blood in urine. All other negative except as mentioned in HPI Physical Examination: General Appearance: Comfortable, in no acute respiratory distress, co-operative . obese Vitals reviewed and noted as below Head; Atraumatic, normocephalic ENT: no ulcers no thrush. Tongue is midline. Oropharynx: no rash or ulcers. EYES: Pupils are equal, round and reactive to light accommodation. Eye muscles and extraocular movement intact. Sclera is anicteric. Neck; supple no lymphadenopathy, no thyromegaly or bruit Lungs: Normal respiratory rate/effort. Breath sounds bilateral equal and clear Heart: Normal rate. s1s2 normal. No rub or gallop. Extremities: no edema. No varicose veins Neurological: Patient is alert, awake and oriented to person, place and time. No focal deficit. Strength bilateral appropriate and equal Skin: Warm and dry. Normal turgor. No rash. Palpitation: Normal elasticity for age Abdomen: Abdomen is soft. Bowel sounds +. There is mild LLq abdominal tenderness, no guarding/rigidity or organomegaly Psych: normal insight and normal affect/mood MSK: no joint tenderness or swelling. Digits and nails normal, no deformity : kidney or bladder not palpable Access: AVF Labs/imaging reviewed. Past medical history, past surgical history, family history, social history, allergy reviewed and noted as below Family Hx: family hx of HD + but pt not aware about reason. rest Non c ontributory Objective - Vital Signs/Intake and Output Vital Signs (last 24 hours): Temp Pulse Resp BP Pulse Ox 97.9 F 83 18 147/79 97 06/29/18 13:50 06/29/18 13:50 06/29/18 13:50 06/29/18 13:50 06/29/18 13:50 - Medications Medications: Current Medications Acetaminophen (Tylenol 325mg Tab) 650 mg PO Q6 PRN PRN Reason: Pain, moderate (4-7) Last Admin: 06/28/18 18:04 Dose: 650 mg Calcitriol (Rocaltrol) 0.5 mcg PO DAILY [facility] Last Admin: 06/28/18 09:33 Dose: 0.5 mcg Diphenhydramine HCl (Benadryl) 25 mg PO ONCE PRN PRN Reason: premedication transfusion Last Admin: 06/27/18 17:00 Dose: 25 mg Epoetin Zeke (Procrit) 20,000 unit IV MWF [facility] Last Admin: 06/29/18 11:16 Dose: 20,000 unit Ferrous Sulfate (Feosol) 325 mg PO DAILY [facility] Last Admin: 06/28/18 09:32 Dose: 325 mg Folic Acid (Folic Acid) 1 mg PO DAILY [facility] Last Admin: 06/28/18 09:32 Dose: 1 mg Levothyroxine Sodium (Synthroid) 75 mcg PO DAILY@0630 [facility] Last Admin: 06/29/18 05:39 Dose: 75 mcg Magnesium Oxide (Mag-Ox) 400 mg PO DAILY [facility] Last Admin: 06/28/18 09:33 Dose: 400 mg Metronidazole (Flagyl) 500 mg PO Q8 [facility]; Protocol Last Admin: 06/29/18 05:39 Dose: 500 mg Multivitamins/Minerals (Therapeutic-M Tab) 1 tab PO DAILY [facility] Last Admin: 06/28/18 14:55 Dose: 1 tab Nebivolol (Bystolic) 2.5 mg PO DAILY [facility] Last Admin: 06/28/18 09:33 Dose: 2.5 mg Quetiapine Fumarate (Seroquel) 200 mg PO HS [facility] Last Admin: 06/28/18 21:42 Dose: 200 mg Rosuvastatin Calcium (Crestor) 10 mg PO HS [facility] Last Admin: 06/28/18 21:42 Dose: 10 mg Sevelamer Carbonate (Renvela) 800 mg PO BID [facility] Last Admin: 06/29/18 10:30 Dose: Not Given Venlafaxine HCl (Effexor Xr) 150 mg PO DAILY [facility] Last Admin: 06/28/18 09:33 Dose: 150 mg Zolpidem Tartrate (Ambien) 5 mg PO HS PRN PRN Reason: Insomnia - Labs Labs: 06/29/18 08:24 06/27/18 12:37
[2018-06-29] MEDS: Multivitamin With Minerals Tab PO SCH (14:48)
[2018-06-29] MEDS: Magnesium Oxide 400 mg Tab UD PO SCH (14:48)
[2018-06-29] MEDS: Venlafaxine 150 mg ER Cap PO SCH (14:49)
--- NOTE | 2018-06-29 16:44 | CP.PCM.PN ---
Objective - Vital Signs/Intake and Output Vital Signs (last 24 hours): Temp Pulse Resp BP Pulse Ox 97.9 F 83 18 147/79 97 06/29/18 13:50 06/29/18 13:50 06/29/18 13:50 06/29/18 13:50 06/29/18 13:50 - Medications Medications: Current Medications Acetaminophen (Tylenol 325mg Tab) 650 mg PO Q6 PRN PRN Reason: Pain, moderate (4-7) Last Admin: 06/28/18 18:04 Dose: 650 mg Calcitriol (Rocaltrol) 0.5 mcg PO DAILY [facility] Last Admin: 06/29/18 14:49 Dose: 0.5 mcg Diphenhydramine HCl (Benadryl) 25 mg PO ONCE PRN PRN Reason: premedication transfusion Last Admin: 06/27/18 17:00 Dose: 25 mg Epoetin Zeke (Procrit) 20,000 unit IV MWF [facility] Last Admin: 06/29/18 11:16 Dose: 20,000 unit Ferrous Sulfate (Feosol) 325 mg PO DAILY [facility] Last Admin: 06/29/18 14:49 Dose: 325 mg Folic Acid (Folic Acid) 1 mg PO DAILY [facility] Last Admin: 06/29/18 14:48 Dose: 1 mg Levothyroxine Sodium (Synthroid) 75 mcg PO DAILY@0630 [facility] Last Admin: 06/29/18 05:39 Dose: 75 mcg Magnesium Oxide (Mag-Ox) 400 mg PO DAILY [facility] Last Admin: 06/29/18 14:48 Dose: 400 mg Metronidazole (Flagyl) 500 mg PO Q8 [facility]; Protocol Last Admin: 06/29/18 14:48 Dose: 500 mg Multivitamins/Minerals (Therapeutic-M Tab) 1 tab PO DAILY [facility] Last Admin: 06/29/18 14:48 Dose: 1 tab Nebivolol (Bystolic) 2.5 mg PO DAILY [facility] Last Admin: 06/29/18 14:49 Dose: 2.5 mg Quetiapine Fumarate (Seroquel) 200 mg PO HS [facility] Last Admin: 06/28/18 21:42 Dose: 200 mg Rosuvastatin Calcium (Crestor) 10 mg PO HS [facility] Last Admin: 06/28/18 21:42 Dose: 10 mg Sevelamer Carbonate (Renvela) 800 mg PO BID [facility] Last Admin: 06/29/18 10:30 Dose: Not Given Venlafaxine HCl (Effexor Xr) 150 mg PO DAILY [facility] Last Admin: 06/29/18 14:49 Dose: 150 mg Zolpidem Tartrate (Ambien) 5 mg PO HS PRN PRN Reason: Insomnia - Labs Labs: 06/29/18 08:24 06/27/18 12:37 Assessment and Plan - Assessment and Plan (Free Text) Assessment: Patient is seen and examined. DENIES SOB OR CHEST PAINS. Had HD done today. Alert and orientedx3, NAD. Discharge plan for today as per DR Richey. Advised to follow up in the office in 1 week.
[2018-06-29 16:52] VITALS: BP 134/85; PULSE 92; TEMP 98.1; O2SAT 96
--- NOTE | 2018-06-29 18:24 | CP.PCM.PN ---
Subjective - Date & Time of Evaluation Date of Evaluation: 06/29/18 Time of Evaluation: 18:15 - Subjective Subjective: The patient has no new complaints. Discussed with the patient and the son regarding results of anemia work up and CAT scan. Assesment/Plan- Anemia-progressive, requiring transfusions, work up so far showing adequate iron stores, normal B12 and SPEP in the past with no M spike or monoclonal protein Recheck the hemoglobin next week. Schedule CAT/PET scan as outpatient and a possible bone marrow biopsy, if the spleen is growing in size, the patient may benefit from splenectomy if there is involvement by splenic marginal zone lymphoma. Above discussed with the patient and her son Objective - Vital Signs/Intake and Output Vital Signs (last 24 hours): Temp Pulse Resp BP Pulse Ox 98.1 F 92 H 18 134/85 96 06/29/18 16:51 06/29/18 16:51 06/29/18 16:51 06/29/18 16:51 06/29/18 16:51 - Medications Medications: Current Medications Acetaminophen (Tylenol 325mg Tab) 650 mg PO Q6 PRN PRN Reason: Pain, moderate (4-7) Last Admin: 06/28/18 18:04 Dose: 650 mg Calcitriol (Rocaltrol) 0.5 mcg PO DAILY [facility] Last Admin: 06/29/18 14:49 Dose: 0.5 mcg Diphenhydramine HCl (Benadryl) 25 mg PO ONCE PRN PRN Reason: premedication transfusion Last Admin: 06/27/18 17:00 Dose: 25 mg Epoetin Zeke (Procrit) 20,000 unit IV MWF [facility] Last Admin: 06/29/18 11:16 Dose: 20,000 unit Ferrous Sulfate (Feosol) 325 mg PO DAILY [facility] Last Admin: 06/29/18 14:49 Dose: 325 mg Folic Acid (Folic Acid) 1 mg PO DAILY [facility] Last Admin: 06/29/18 14:48 Dose: 1 mg Levothyroxine Sodium (Synthroid) 75 mcg PO DAILY@0630 [facility] Last Admin: 06/29/18 05:39 Dose: 75 mcg Magnesium Oxide (Mag-Ox) 400 mg PO DAILY [facility] Last Admin: 06/29/18 14:48 Dose: 400 mg Metronidazole (Flagyl) 500 mg PO Q8 [facility]; Protocol Last Admin: 06/29/18 14:48 Dose: 500 mg Multivitamins/Minerals (Therapeutic-M Tab) 1 tab PO DAILY [facility] Last Admin: 06/29/18 14:48 Dose: 1 tab Nebivolol (Bystolic) 2.5 mg PO DAILY [facility] Last Admin: 06/29/18 14:49 Dose: 2.5 mg Quetiapine Fumarate (Seroquel) 200 mg PO HS [facility] Last Admin: 06/28/18 21:42 Dose: 200 mg Rosuvastatin Calcium (Crestor) 10 mg PO HS [facility] Last Admin: 06/28/18 21:42 Dose: 10 mg Sevelamer Carbonate (Renvela) 800 mg PO BID [facility] Last Admin: 06/29/18 10:30 Dose: Not Given Venlafaxine HCl (Effexor Xr) 150 mg PO DAILY [facility] Last Admin: 06/29/18 14:49 Dose: 150 mg Zolpidem Tartrate (Ambien) 5 mg PO HS PRN PRN Reason: Insomnia - Labs Labs: 06/29/18 08:24 06/27/18 12:37
[2018-07-03 05:27] LABS: ALBUMIN (PEP) 2.7 g/dL (3.8-4.8); ALPHA-1-GLOBULIN (PEP) 0.7 g/dL (0.2-0.3)
--- NOTE | 2018-07-03 12:49 | CP.PCM.DIS ---
Provider - Provider Date of Admission: 06/27/18 13:22 Attending physician: Madisyn Richey MD Consults: 06/27/18 15:40 Hematology Oncology Consult Routine Comment: Consulting Provider: Gloria Quarles Consulting Physician: Gloria Quarles Reason for Consult: anemia 06/27/18 15:41 Nephrology Consult Routine Comment: Consulting Provider: Anand Smith Consulting Physician: Anand Smith Reason for Consult: ESRD on HD 06/28/18 13:27 Gastroenterology Consult Routine Comment: Consulting Provider: Leo Spencer Consulting Physician: Leo Spencer Reason for Consult: GI bleed, abd pain Time Spent in preparation of Discharge (in minutes): 20 Hospital Course - Lab Results Lab Results: Micro Results 06/27/18 18:37 Blood-Venous Blood Culture - Final NO GROWTH AFTER 5 DAYS 06/27/18 18:37 Blood-Venous Gram Stain - Final TEST NOT PERFORMED 06/27/18 18:18 Blood-Venous Blood Culture - Final NO GROWTH AFTER 5 DAYS 06/27/18 18:18 Blood-Venous Gram Stain - Final TEST NOT PERFORMED Most Recent Lab Values WBC 7.7 K/uL (4.8-10.8) 06/29/18 08:24 RBC 2.88 Mil/uL (3.80-5.20) L 06/29/18 08:24 Hgb 8.9 g/dL (11.0-16.0) L 06/29/18 08:24 Hct 27.0 % (34.0-47.0) L 06/29/18 08:24 MCV 93.9 fL (81.0-99.0) 06/29/18 08:24 MCH 30.9 pg (27.0-31.0) 06/29/18 08:24 MCHC 32.9 g/dL (33.0-37.0) L 06/29/18 08:24 RDW 16.1 % (11.5-14.5) H 06/29/18 08:24 Plt Count 148 K/uL (130-400) 06/29/18 08:24 MPV 9.2 fL (7.2-11.7) 06/29/18 08:24 Neut % (Auto) 82.2 % (50.0-75.0) H 06/27/18 12:37 Lymph % (Auto) 10.2 % (20.0-40.0) L 06/27/18 12:37 [place] % (Auto) 5.9 % (0.0-10.0) 06/27/18 12:37 Eos % (Auto) 0.9 % (0.0-4.0) 06/27/18 12:37 Baso % (Auto) 0.8 % (0.0-2.0) 06/27/18 12:37 Neut # (Auto) 4.9 K/uL (1.8-7.0) 06/27/18 12:37 Lymph # (Auto) 0.6 K/uL (1.0-4.3) L 06/27/18 12:37 [place] # (Auto) 0.3 K/uL (0.0-0.8) 06/27/18 12:37 Eos # (Auto) 0.1 K/uL (0.0-0.7) 06/27/18 12:37 Baso # (Auto) 0.0 K/uL (0.0-0.2) 06/27/18 12:37 Retic Count 3.2 % (0.5-1.5) H D 06/29/18 08:24 Sodium 135 mmol/L (132-148) 06/27/18 12:37 Potassium 3.9 mmol/L (3.6-5.2) 06/27/18 12:37 Chloride 94 mmol/L (98-107) L 06/27/18 12:37 Carbon Dioxide 29 mmol/L (22-30) 06/27/18 12:37 Anion Gap 17 (10-20) 06/27/18 12:37 BUN 27 mg/dL (7-17) H 06/27/18 12:37 Creatinine 6.2 mg/dL (0.7-1.2) H 06/27/18 12:37 Est GFR ( Amer) 8 06/27/18 12:37 Est GFR (Non-Af Amer) 7 06/27/18 12:37 Random Glucose 107 mg/dL (65-105) H 06/27/18 12:37 Calcium 8.1 mg/dl (8.6-10.4) L 06/27/18 12:37 Iron 43 ug/dL (37-170) 06/27/18 18:18 TIBC 161 ug/dL (250-450) L 06/27/18 18:18 % Saturation 27 (20-55) 06/27/18 18:18 Ferritin 1520.0 ng/mL 06/27/18 18:18 Total Bilirubin 0.8 mg/dL (0.2-1.3) 06/27/18 12:37 AST 19 U/L (14-36) 06/27/18 12:37 ALT 12 U/L (9-52) 06/27/18 12:37 Alkaline Phosphatase 78 U/L (38-126) 06/27/18 12:37 Lactate Dehydrogenase 434 U/L (313-618) 06/29/18 08:24 Total Protein 7.3 g/dL (6.3-8.3) 06/27/18 12:37 Total Protein (PEP) 7.0 g/dL (6.1-8.1) 06/27/18 18:37 Albumin 3.1 g/dL (3.5-5.0) L D 06/27/18 12:37 Albumin (PEP) 2.7 g/dL (3.8-4.8) L 06/27/18 18:37 Globulin 4.2 gm/dL (2.2-3.9) H 06/27/18 12:37 Albumin/Globulin Ratio 0.7 (1.0-2.1) L 06/27/18 12:37 Obprb-3-Ecxdfxtdp 0.7 g/dL (0.2-0.3) H 06/27/18 18:37 Mnaiq-2-Gzuepslzz 0.6 g/dL (0.5-0.9) 06/27/18 18:37 Uguw-3-Qyyadysu 0.3 g/dL (0.4-0.6) L 06/27/18 18:37 Clfu-0-Mhrjumlh 0.4 g/dL (0.2-0.5) 06/27/18 18:37 Gamma Globulins 2.3 g/dL (0.8-1.7) H 06/27/18 18:37 Abnorm Protein Band 1 TEST NOT PERFORMED 06/27/18 18:37 Abnorm Protein Band 2 TEST NOT PERFORMED 06/27/18 18:37 Abnorm Protein Band 3 TEST NOT PERFORMED 06/27/18 18:37 Vitamin B12 > 1000 pg/mL (239-931) H 06/27/18 18:18 Folate 5.9 ng/mL 06/27/18 18:18 Urine Color Yellow (YELLOW) 06/27/18 14:10 Urine Clarity Hazy (Clear) 06/27/18 14:10 Urine pH 8.0 (5.0-8.0) 06/27/18 14:10 Ur Specific [employer] 1.004 (1.003-1.030) 06/27/18 14:10 Urine Protein 2+ mg/dL (NEGATIVE) H 06/27/18 14:10 Urine Glucose (UA) Normal mg/dL (Normal) 06/27/18 14:10 Urine Ketones Negative mg/dL (NEGATIVE) 06/27/18 14:10 Urine Blood Negative (NEGATIVE) 06/27/18 14:10 Urine Nitrate Negative (NEGATIVE) 06/27/18 14:10 Urine Bilirubin Negative (NEGATIVE) 06/27/18 14:10 Urine Urobilinogen Normal mg/dL (0.2-1.0) 06/27/18 14:10 Ur Leukocyte Esterase 3+ [place]/uL (Negative) H 06/27/18 14:10 Urine WBC (Auto) 108 /hpf (0-5) H 06/27/18 14:10 Urine RBC (Auto) 3 /hpf (0-3) 06/27/18 14:10 Ur Squamous Epith Cells 36 /hpf (0-5) H 06/27/18 14:10 Urine Bacteria Occ (<OCC) H 06/27/18 14:10 JOVANNY & SPEP Interp See note 06/27/18 18:37 Serum Immunofixation Not detected (Not Detected) 06/27/18 18:37 Tot [place]/Lambda Ratio 1.91 (1.29-2.55) 06/27/18 18:37 [place] Light Chain Anal 547 mg/dL (176-443) H 06/27/18 18:37 Lambda Light Chain Anal 287 mg/dL (91-240) H 06/27/18 18:37 Hep Bs Antigen Negative (NEGATIVE) 06/27/18 19:17 Hep Bs Antibody Negative (NEGATIVE) 06/27/18 19:17 Hepatitis C Antibody Negative (NEGATIVE) 06/27/18 19:17 Blood Type AB POSITIVE 06/27/18 12:37 Antibody Screen Negative 06/27/18 12:37 - Hospital Course Hospital Course: Pt was admitted to the hospital with symptomatic anemia hemoglobin of 6 pt has history of anemia, hypersplenism, thrombocytopenia Pt was transfussed two units prn with good symptomatic improvement pt was seen by gi and recommended outp egd and colonoscopy pt was also evaluated by hematologyst Discharge Exam - Head Exam Head Exam: ATRAUMATIC, NORMOCEPHALIC Discharge Plan - Follow Up Plan Condition: STABLE Disposition: HOME/ ROUTINE Instructions: End Stage Kidney Disease (DC), Dialysis and Diet Additional Instructions: Follow up with Dr. Richey in one week, continue home medications. Return to Emergency Room for any new or worsening symptoms. José Miguel un seguimiento con el Dr. Richey en samantha semana, contine con los med icamentos en el hogar. Regrese a la june de emergencias para cualquier sntoma nuevo o que empeore. Referrals: Madisyn Richey MD [Staff Provider] - Anand Smith MD [Staff Provider] - Gloria Quarles MD [Staff Provider] - Leo Spencer MD [Staff Provider] -
--- NOTE | 2018-07-03 13:21 | PQF ---
PROVIDER RESPONSE TEXT: Pt has anemia due to Chronic disease and hypersplenism. REVIEWER QUERY TEXT: Anemia Type Anemia is documented in the Medical Record. Please specify the cause (includes suspected or probable cause) Such as: -- Due to acute blood loss -- Due to chronic blood loss -- Due to iron deficiency -- Due to postoperative blood loss -- Due to chronic disease -- Other, please specify The patient's Clinical Indicators include: SEVERE ANEMIA ESRD PLEASE CLAIFY AND DOCUMENT IF ;ANEMIA' ESRD RELATED. Query created by: Chasity Felton on 07/02/2018 12:13 PM Electronically signed by: Madisyn Richey MD 07/03/2018 1:18 PM
== END 2018-06-29 18:30 | disposition home or self-care (01) | DRG 811 ==
LOC: C.ER 11:36 → C.9E 13:22 → C.5S 14:08
PROVIDERS: ADMIT Internal Medicine; ATTEND Internal Medicine
PROC: 5A1D70Z Performance of Urinary Filtration, Intermittent, Less than 6 Hours Per Day (ICD-10-PCS; principal; 2018-06-27)
PROC: 5A1D70Z Performance of Urinary Filtration, Intermittent, Less than 6 Hours Per Day (ICD-10-PCS; 2018-06-29)
DX: D64.9 Anemia, unspecified (principal); N18.6 End stage renal disease; I12.0 Hypertensive chronic kidney disease with stage 5 chronic kidney disease or end stage renal disease; N25.81 Secondary hyperparathyroidism of renal origin; D63.8 Anemia in other chronic diseases classified elsewhere; E11.22 Type 2 diabetes mellitus with diabetic chronic kidney disease; E03.9 Hypothyroidism, unspecified; D69.6 Thrombocytopenia, unspecified; F41.9 Anxiety disorder, unspecified; G47.00 Insomnia, unspecified; Z98.84 Bariatric surgery status; Z99.2 Dependence on renal dialysis; N76.0 Acute vaginitis; F31.9 Bipolar disorder, unspecified; E83.39 Other disorders of phosphorus metabolism; E11.51 Type 2 diabetes mellitus with diabetic peripheral angiopathy without gangrene; E78.00 Pure hypercholesterolemia, unspecified; D73.1 Hypersplenism

== ENCOUNTER 2018-07-19 13:07 | Inpatient (IN) | payer MEDICARE, OTHER ==
--- NOTE | 2018-07-19 14:11 | C.PDOC ---
History Of Present Illness 63 y/o female with a PMHx of anemia, HTN, ESRD (on dialysis M-W-F) presents to the ED, sent in by PMD for evaluation secondary to abnormal labs. Recent labs demonstrated hemoglobin of 7.4, and patient was instructed to come immediately to the ED. Patient complains of generalized weakness and feeling dizzy. She denies any nausea, vomiting, chest pain, SOB, focal weakness, saddle anesthesia, or incontinence of bowel/bladder. Patient also complains of chronic back pain. + history of prior blood transfusions. Last dialysis session was yesterday. She denies any trauma or fall. No dark or bloody stool. Hem/Onc- Dr. Quarles PMD- Dr. Madisyn Richey Time Seen by Provider: 07/19/18 14:10 Chief Complaint (Nursing): Abnormal Labs History Per: Patient History/Exam Limitations: no limitations Onset/Duration Of Symptoms: Days Current Symptoms Are (Timing): Still Present Past Medical History Reviewed: Historical Data, Nursing Documentation, Vital Signs Vital Signs: Last Vital Signs Temp 98 F 07/19/18 13:27 Pulse 92 H 07/19/18 13:27 Resp 18 07/19/18 13:27 BP 94/61 L 07/19/18 13:27 Pulse Ox 97 07/19/18 13:27 - Medical History PMH: Anemia, Anxiety, Arthritis, Bipolar Disorder, Colonic Polyps, Depression, Gastritis, HTN, Hypercholesterolemia, Hypothyroidism, Kidney Stones, Migraine, End Stage Renal Disease, Chronic Kidney Disease Denies: Diabetes, Hepatitis - [facility] Procedures (06/27/18) INDIVID PSYCHOTHERAP NEC (12/24/13) OTHER GROUP THERAPY (12/24/13) PACKED CELL TRANSFUSION (12/12/12) PSYCHIAT DRUG THERAP NEC (12/24/13) Family History: States: Unknown Family Hx - Social History Hx Tobacco Use: No Hx Alcohol Use: No Hx Substance Use: No - Immunization History Hx Tetanus Toxoid Vaccination: No Hx Influenza Vaccination: No Hx Pneumococcal Vaccination: No Review Of Systems Constitutional: Positive for: Weakness (generalized). Negative for: Fever, Chills Eyes: Negative for: Vision Change Cardiovascular: Negative for: Chest Pain Respiratory: Negative for: Cough, Shortness of Breath, Hemoptysis Gastrointestinal: Positive for: Abdominal Pain. Negative for: Nausea, Vomiting, Diarrhea, Constipation, Melena, Hematochezia, Hematemesis, Rectal Pain Genitourinary: Negative for: Incontinence Musculoskeletal: Positive for: Back Pain Skin: Negative for: Rash Neurological: Positive for: Dizziness. Negative for: Weakness, Numbness Physical Exam - Physical Exam Appears: Non-toxic, No Acute Distress Skin: Warm, Dry Head: Normacephalic Eye(s): bilateral: PERRL, EOMI, Conjunctiva Pale Oral Mucosa: Moist Neck: Trachea Midline, Supple, Other (No meningeal signs- negative kernig's and brudzinskis) Chest: Symmetrical Cardiovascular: Rhythm Regular, No Friction Rub Respiratory: No Rales, No Rhonchi, No Wheezing Gastrointestinal/Abdominal: Soft, No Tenderness, No Distention Extremity: Bilateral: Normal Color And Temperature, Normal ROM Pulses: Left Dorsalis Pedis: Normal, Right Dorsalis Pedis: Normal Neurological/Psych: Oriented x3, Normal Speech, Normal Cognition Gait: Steady ED Course And Treatment - Laboratory Results Result Diagrams: 07/19/18 15:20 07/19/18 14:33 O2 Sat by Pulse Oximetry: 97 (RA) Pulse Ox Interpretation: Normal Medical Decision Making Medical Decision Makin yr F on HD p/w anemia. 7.4 via outside labs prior. Sent in by Dr. Barrett for Symptomatic anemia. No dark or bloody stool, no trauma or abdominal pain. No fall. Not on blood thinners. ?anemia of chronic disease. Will likely require transfusion and admission given co-morbidities (HD) and symptomatic anemia. Impression: Abnormal labs Plan: --EKG --Blood type/screen --CMP --Magnesium --CBC --PTT/PT 1538 Appreciate consult w/ Dr. Richey: accepted By Dr. Richey to her service pt in NAD w/ normal neuro exam, signed consent for blood Disposition - Disposition Disposition: HOSPITALIZED Disposition Time: 15:38 Condition: GOOD - Clinical Impression Clinical Impression: Symptomatic anemia - Scribe Statement The provider has reviewed the documentation as recorded by the Hilaria Zavaleta Provider Attestation: All medical record entries made by the Amadoibelmer were at my direction and personally dictated by me. I have reviewed the chart and agree that the record accurately reflects my personal performance of the history, physical exam, medical decision making, and the department course for this patient. I have also personally directed, reviewed, and agree with the discharge instructions and disposition.
[2018-07-19 15:11] LABS: ALB/GLOB RATIO 0.9 (1.0-2.1); ALBUMIN 3.9 g/dL (3.5-5.0); CALCIUM 8.4 mg/dl (8.6-10.4)
[2018-07-19 15:26] LABS: BASO % 0.9 % (0.0-2.0); EOS % 1.1 % (0.0-4.0); HEMOGLOBIN 7.3 g/dL (11.0-16.0); LYMPH # 0.7 K/uL (1.0-4.3); MEAN CELL VOLUME 94.3 fL (81.0-99.0); MEAN CORPUSCULAR HEMOGLOBIN 30.3 pg (27.0-31.0); MEAN CORPUSCULAR HGB CONC 32.1 g/dL (33.0-37.0); MEAN PLATELET VOLUME 9.1 fL (7.2-11.7); MONO # 0.3 K/uL (0.0-0.8); MONO % 7.3 % (0.0-10.0); NEUT # 3.1 K/uL (1.8-7.0); NEUT % 73.7 % (50.0-75.0); RBC 2.41 Mil/uL (3.80-5.20); RED CELL DISTRIBUTION WIDTH 16.4 % (11.5-14.5); WHITE BLOOD COUNT 4.2 K/uL (4.8-10.8)
[2018-07-19 15:34] LABS: INR 1.4; PROTHROMBIN TIME 14.9 SECONDS (9.7-12.2)
--- NOTE | 2018-07-19 16:24 | CP.PCM.HP ---
History of Present Illness - History of Present Illness History of Present Illness: anemia Past Patient History - Past Medical History & Family History Past Medical History?: Yes - Past Social History Smoking Status: Never Smoked - CARDIAC Hx Hypercholesterolemia: Yes Hx Hypertension: Yes - PULMONARY Hx Respiratory Disorders: No Hx Tuberculosis: No - NEUROLOGICAL Hx Migraine: Yes - HEENT Hx HEENT Problems: Yes - RENAL Hx Chronic Kidney Disease: Yes Hx Kidney Stones: Yes - ENDOCRINE/METABOLIC Hx Hypothyroidism: Yes - HEMATOLOGICAL/ONCOLOGICAL Hx Anemia: Yes - INTEGUMENTARY Hx Dermatological Problems: No - MUSCULOSKELETAL/RHEUMATOLOGICAL Hx Arthritis: Yes - GASTROINTESTINAL Hx Gastritis: Yes - PSYCHIATRIC Hx Anxiety: Yes Hx Bipolar Disorder: Yes Hx Depression: Yes Hx Substance Use: No - SURGICAL HISTORY Hx Surgeries: Yes Hx Arteriovenous Shunt: Yes - ANESTHESIA Hx Anesthesia: Yes Hx Anesthesia Reactions: No Hx Malignant Hyperthermia: No Meds Allergies/Adverse Reactions: Allergies Allergy/AdvReac Type Severity Reaction Status Date / Time codeine Allergy Mild RASH Verified 06/27/18 11:44 iodine Allergy Mild RASH Verified 06/27/18 11:44 oxycodone [From Percocet] Allergy Mild RASH Verified 06/27/18 11:44 seafood Allergy Mild RASH Uncoded 06/27/18 11:44 Results - Vital Signs Recent Vital Signs: Last Vital Signs Temp 98 F 07/19/18 13:27 Pulse 92 H 07/19/18 13:27 Resp 18 07/19/18 13:27 BP 94/61 L 07/19/18 13:27 Pulse Ox 97 07/19/18 15:38 - Labs Result Diagrams: 07/19/18 15:20 07/19/18 14:33 Labs: Laboratory Results - last 24 hr 07/19/18 07/19/18 07/19/18 14:33 15:20 15:20 WBC RBC Hgb Hct MCV MCH MCHC RDW Plt Count MPV Neut % (Auto) Lymph % (Auto) [place] % (Auto) Eos % (Auto) Baso % (Auto) Neut # (Auto) Lymph # (Auto) [place] # (Auto) Eos # (Auto) Baso # (Auto) PT 14.9 H INR 1.4 APTT 41 H Sodium 134 Potassium 4.9 Chloride 93 L Carbon Dioxide 30 Anion Gap 16 BUN 47 H Creatinine 5.8 H Est GFR ( Amer) 9 Est GFR (Non-Af Amer) 7 Random Glucose 80 D Calcium 8.4 L Magnesium 1.9 Total Bilirubin 0.9 AST 36 D ALT 12 Alkaline Phosphatase 78 Total Protein 8.1 Albumin 3.9 Globulin 4.3 H Albumin/Globulin Ratio 0.9 L Blood Type Antibody Screen 07/19/18 07/19/18 15:20 15:22 WBC 4.2 L RBC 2.41 L Hgb 7.3 L Hct 22.7 L MCV 94.3 MCH 30.3 MCHC 32.1 L RDW 16.4 H Plt Count 134 MPV 9.1 Neut % (Auto) 73.7 Lymph % (Auto) 17.0 L [place] % (Auto) 7.3 Eos % (Auto) 1.1 Baso % (Auto) 0.9 Neut # (Auto) 3.1 Lymph # (Auto) 0.7 L [place] # (Auto) 0.3 Eos # (Auto) 0.0 Baso # (Auto) 0.0 PT INR APTT Sodium Potassium Chloride Carbon Dioxide Anion Gap BUN Creatinine Est GFR ( Amer) Est GFR (Non-Af Amer) Random Glucose Calcium Magnesium Total Bilirubin AST ALT Alkaline Phosphatase Total Protein Albumin Globulin Albumin/Globulin Ratio Blood Type AB POSITIVE Antibody Screen Negative
[2018-07-19 20:22] VITALS: BMI 31.6
[2018-07-20] MEDS ORDERED: Levothyroxine 75 MCG TAB PO SCH (06:30)
[2018-07-20] MEDS ORDERED: Venlafaxine 150 mg ER Cap PO SCH ×2 (10:00)
[2018-07-20] MEDS ORDERED: Multivitamin Vitamin B Complex (Nephro-Vite) Tab PO SCH (10:00)
[2018-07-20] MEDS ORDERED: Magnesium Oxide 400 mg Tab UD PO SCH (10:00)
[2018-07-20] MEDS ORDERED: [UNRECOGNIZED DRUG - REMARK] PO SCH (10:00)
[2018-07-20] MEDS ORDERED: Epoetin Alfa Dialysis 20000 UNIT/ML Inj IV SCH (12:00)
--- NOTE | 2018-07-20 15:08 | CP.PCM.PN ---
Subjective - Date & Time of Evaluation Date of Evaluation: 07/20/18 Time of Evaluation: 15:07 - Subjective Subjective: Nephrology Consultation Note: Assessment: Stable Severe symptomatic Anemia Hypertensive Chronic Kidney Disease (I12.0) End stage renal disease (N18.6) dependence on hemodialysis (Z99.2) (MWF) via AVF Anemia (D64.9), Hyperphosphatemia (E83.39), Secondary Hyperparathyroidism (E21.1), HTN (I12.0) PCKD splenomegaly Plan: Will plan for HD MWF as ordered. Continue with Nephrovite 1 tab/day. PRBC as needed for anemia. added on ZENA max dose with dialysis as last Hb 7.3. recent myeloma work up neg. heme consult. no IV iron ordered due to high ferritin Continue with phos binders, last phos level; check Continue with calcitriol daily instead of TID BP control with meds as ordered. Patient not on RAAS beba may add if needed Glycemic control, Dialysis consistent diet Further work up/management as per primary team Dose meds/antibiotics (if needed) for ESRD status. Avoid fleets enema/magnesium based laxatives. Thanks for allowing me to participate in care of your patient. Will follow patient with you. Please call if any Qs Dr Alcon Prabhakar Office: [phone] Chief Complaint;anemia HPI: Pt is a 63 F with hx of ESRD on hemodialysis (MWF) via AVF , last dialysis wed, chronic anemia, hyperphosphatemia, secondary hyperparathyroidism, hypertension presented with complaints of anemnia Renal consult requested for ESRD management. c/o low back pain ROS: feels better Cardiovascular: No chest pain. Pulmonary: no shortness of breath Gastrointestinal: denies abdominal pain No nausea. No vomiting. Genitourinary: No pain while urinating. Denies blood in urine. All other negative except as mentioned in HPI Physical Examination: General Appearance: Comfortable, in no acute respiratory distress, co-operative . obese Vitals reviewed and noted as below Head; Atraumatic, normocephalic ENT: no ulcers no thrush. Tongue is midline. Oropharynx: no rash or ulcers. EYES: Pupils are equal, round and reactive to light accommodation. Eye muscles and extraocular movement intact. Sclera is anicteric. Neck; supple no lymphadenopathy, no thyromegaly or bruit Lungs: Normal respiratory rate/effort. Breath sounds bilateral equal and clear Heart: Normal rate. s1s2 normal. No rub or gallop. Extremities: no edema. No varicose veins Neurological: Patient is alert, awake and oriented to person, place and time. No focal deficit. Strength bilateral appropriate and equal Skin: Warm and dry. Normal turgor. No rash. Palpitation: Normal elasticity for age Abdomen: Abdomen is soft. Bowel sounds +. There is no abdominal tenderness, no guarding/rigidity or organomegaly Psych: normal insight and normal affect/mood MSK: no joint tenderness or swelling. Digits and nails normal, no deformity : kidney or bladder not palpable Access: AVF Labs/imaging reviewed. Past medical history, past surgical history, family history, social history, allergy reviewed and noted as below Family Hx: family hx of HD + but pt not aware about reason. rest Non contributory Objective - Vital Signs/Intake and Output Vital Signs (last 24 hours): Temp Pulse Resp BP Pulse Ox 98 F 88 18 123/70 100 07/20/18 14:45 07/20/18 14:45 07/20/18 14:45 07/20/18 14:45 07/20/18 14:45 - Medications Medications: Current Medications Acetaminophen (Tylenol 325mg Tab) 650 mg PO DAILY PRN PRN Reason: before blood transfusion Calcitriol (Rocaltrol) 0.5 mcg PO DAILY [facility] Clonazepam (Klonopin) 1 mg PO BID [facility] Last Admin: 07/20/18 09:47 Dose: 1 mg Clonazepam (Klonopin) 2 mg PO HS [facility] Last Admin: 07/19/18 22:52 Dose: 2 mg Epoetin Zeke (Procrit) 20,000 unit IV [facility] Ferrous Sulfate (Feosol) 325 mg PO DAILY [facility] Last Admin: 07/20/18 09:46 Dose: 325 mg Folic Acid (Folic Acid) 1 mg PO DAILY [facility] Last Admin: 07/20/18 09:47 Dose: 1 mg Heparin Sodium (Porcine) (Heparin) 2,000 units IVP [facility] Home Med (Mv-Mins No.50/Iron,Carb/Folic [Vol-Tab Rx Tablet]) 1 tab PO DAILY [facility] Levothyroxine Sodium (Synthroid) 75 mcg PO DAILY@0630 [facility] Last Admin: 07/20/18 05:41 Dose: 75 mcg Magnesium Oxide (Mag-Ox) 400 mg PO DAILY [facility] Last Admin: 07/20/18 09:47 Dose: 400 mg Nebivolol (Bystolic) 2.5 mg PO DAILY [facility] Last Admin: 07/20/18 09:46 Dose: Not Given Quetiapine Fumarate (Seroquel) 600 mg PO HS [facility] Rosuvastatin Calcium (Crestor) 10 mg PO HS [facility] Last Admin: 07/19/18 22:52 Dose: 10 mg Sevelamer Carbonate (Renvela) 800 mg PO BID [facility] Last Admin: 07/20/18 09:47 Dose: 800 mg Venlafaxine HCl (Effexor) 75 mg PO QPM [facility] Venlafaxine HCl (Effexor Xr) 150 mg PO QAM [facility] Last Admin: 07/20/18 09:46 Dose: 150 mg Vitamin B Complex/Vit C/Folic Acid (Nephro-Bharati) 1 tab PO DAILY [facility] Last Admin: 07/20/18 09:47 Dose: 1 tab Zolpidem Tartrate (Ambien) 5 mg PO HS PRN PRN Reason: Insomnia - Labs Labs: 07/19/18 15:20 07/19/18 14:33 PT 14.9 SECONDS (9.7-12.2) H 07/19/18 15:20 INR 1.4 07/19/18 15:20 APTT 41 SECONDS (21-34) H 07/19/18 15:20
--- NOTE | 2018-07-20 16:05 | CP.PCM.CON ---
History of Present Illness - History of Present Illness History of Present Illness: 63 yo woman, known to the office, readmitted with severe anemia, work up for which in the past has shown normal iron studies, B12, negative SPEP, serum immunofixation and normal flow cytometry of peripheral blood. The patient has had increasing frequency of blood transfusion. Several CAT scans done over the past 5 years or so have been normal/unchanged, except for increasing spleen size. The patient reports dizziness and lightheadedness when her Hgb drops and has also had recent weight loss. Plan- The patient has not been able to follow up as an outpatient. Will reinforce need for a bone marrow biopsy and PET/CT scan, and also possible splenectomy, with the possibility of splenic lymphoma. Above discussed with nephrology Past Patient History - Past Medical History & Family History Past Medical History?: Yes - Past Social History Smoking Status: Never Smoked - CARDIAC Hx Hypercholesterolemia: Yes Hx Hypertension: Yes - PULMONARY Hx Respiratory Disorders: No Hx Tuberculosis: No - NEUROLOGICAL Hx Migraine: Yes - HEENT Hx HEENT Problems: Yes - RENAL Hx Chronic Kidney Disease: Yes Hx Kidney Stones: Yes - ENDOCRINE/METABOLIC Hx Hypothyroidism: Yes - HEMATOLOGICAL/ONCOLOGICAL Hx Anemia: Yes - INTEGUMENTARY Hx Dermatological Problems: No - MUSCULOSKELETAL/RHEUMATOLOGICAL Hx Arthritis: Yes - GASTROINTESTINAL Hx Gastritis: Yes - PSYCHIATRIC Hx Anxiety: Yes Hx Bipolar Disorder: Yes Hx Depression: Yes Hx Substance Use: No - SURGICAL HISTORY Hx Surgeries: Yes Hx Arteriovenous Shunt: Yes - ANESTHESIA Hx Anesthesia: Yes Hx Anesthesia Reactions: No Hx Malignant Hyperthermia: No Meds Allergies/Adverse Reactions: Allergies Allergy/AdvReac Type Severity Reaction Status Date / Time codeine Allergy Mild RASH Verified 06/27/18 11:44 iodine Allergy Mild RASH Verified 06/27/18 11:44 oxycodone [From Percocet] Allergy Mild RASH Verified 06/27/18 11:44 seafood Allergy Mild RASH Uncoded 06/27/18 11:44 - Medications Medications: Current Medications Acetaminophen (Tylenol 325mg Tab) 650 mg PO DAILY PRN PRN Reason: before blood transfusion Calcitriol (Rocaltrol) 0.5 mcg PO DAILY [facility] Clonazepam (Klonopin) 1 mg PO BID [facility] Last Admin: 07/20/18 09:47 Dose: 1 mg Clonazepam (Klonopin) 2 mg PO HS [facility] Last Admin: 07/19/18 22:52 Dose: 2 mg Epoetin Zeke (Procrit) 20,000 unit IV [facility] [place] Last Admin: 07/20/18 15:09 Dose: 20,000 unit Ferrous Sulfate (Feosol) 325 mg PO DAILY [facility] Last Admin: 07/20/18 09:46 Dose: 325 mg Folic Acid (Folic Acid) 1 mg PO DAILY [facility] Last Admin: 07/20/18 09:47 Dose: 1 mg Heparin Sodium (Porcine) (Heparin) 2,000 units IVP [facility] [place] Last Admin: 07/20/18 15:08 Dose: 2,000 units Home Med (Mv-Mins No.50/Iron,Carb/Folic [Vol-Tab Rx Tablet]) 1 tab PO DAILY [facility] Levothyroxine Sodium (Synthroid) 75 mcg PO DAILY@0630 [facility] Last Admin: 07/20/18 05:41 Dose: 75 mcg Magnesium Oxide (Mag-Ox) 400 mg PO DAILY [facility] Last Admin: 07/20/18 09:47 Dose: 400 mg Nebivolol (Bystolic) 2.5 mg PO DAILY [facility] Last Admin: 07/20/18 09:46 Dose: Not Given Quetiapine Fumarate (Seroquel) 600 mg PO HS [facility] Rosuvastatin Calcium (Crestor) 10 mg PO HS [facility] Last Admin: 07/19/18 22:52 Dose: 10 mg Sevelamer Carbonate (Renvela) 800 mg PO BID [facility] Last Admin: 07/20/18 09:47 Dose: 800 mg Venlafaxine HCl (Effexor) 75 mg PO QPM [facility] Venlafaxine HCl (Effexor Xr) 150 mg PO QAM [facility] Last Admin: 07/20/18 09:46 Dose: 150 mg Vitamin B Complex/Vit C/Folic Acid (Nephro-Bharati) 1 tab PO DAILY [facility] Last Admin: 07/20/18 09:47 Dose: 1 tab Zolpidem Tartrate (Ambien) 5 mg PO HS PRN PRN Reason: Insomnia Results - Vital Signs Recent Vital Signs: Last Vital Signs Temp 98 F 07/20/18 16:00 Pulse 84 07/20/18 16:00 Resp 16 07/20/18 16:00 BP 123/76 07/20/18 16:00 Pulse Ox 95 07/20/18 15:49 - Labs Result Diagrams: 07/19/18 15:20 07/19/18 14:33 Labs: Laboratory Results - last 24 hr 07/19/18 15:22 Blood Type AB POSITIVE Antibody Screen Negative
[2018-07-20 18:48] VITALS: BP 125/72; PULSE 97; RESP 16; TEMP 97.8; O2SAT 97
--- NOTE | 2018-07-20 20:42 | CP.PCM.DIS ---
Provider - Provider Date of Admission: 07/19/18 15:38 Attending physician: Madisyn Richey MD Consults: 07/19/18 21:10 Hematology Oncology Consult Routine Comment: Consulting Provider: Gloria Quarles Consulting Physician: Gloria Quarles Reason for Consult: anemia 07/19/18 21:11 Nephrology Consult Routine Comment: Consulting Provider: Anand Simth Consulting Physician: Anand Smith Reason for Consult: dialysis orders 07/19/18 21:15 Psychiatry Consult Routine Comment: Consulting Provider: Boaz Rodriguez Consulting Physician: Boaz Rodriguez Reason for Consult: hx of bipolar disorder and depression Hospital Course - Lab Results Lab Results: Most Recent Lab Values WBC 4.2 K/uL (4.8-10.8) L 07/19/18 15:20 RBC 2.41 Mil/uL (3.80-5.20) L 07/19/18 15:20 Hgb 7.3 g/dL (11.0-16.0) L 07/19/18 15:20 Hct 22.7 % (34.0-47.0) L 07/19/18 15:20 MCV 94.3 fL (81.0-99.0) 07/19/18 15:20 MCH 30.3 pg (27.0-31.0) 07/19/18 15:20 MCHC 32.1 g/dL (33.0-37.0) L 07/19/18 15:20 RDW 16.4 % (11.5-14.5) H 07/19/18 15:20 Plt Count 134 K/uL (130-400) 07/19/18 15:20 MPV 9.1 fL (7.2-11.7) 07/19/18 15:20 Neut % (Auto) 73.7 % (50.0-75.0) 07/19/18 15:20 Lymph % (Auto) 17.0 % (20.0-40.0) L 07/19/18 15:20 [place] % (Auto) 7.3 % (0.0-10.0) 07/19/18 15:20 Eos % (Auto) 1.1 % (0.0-4.0) 07/19/18 15:20 Baso % (Auto) 0.9 % (0.0-2.0) 07/19/18 15:20 Neut # (Auto) 3.1 K/uL (1.8-7.0) 07/19/18 15:20 Lymph # (Auto) 0.7 K/uL (1.0-4.3) L 07/19/18 15:20 [place] # (Auto) 0.3 K/uL (0.0-0.8) 07/19/18 15:20 Eos # (Auto) 0.0 K/uL (0.0-0.7) 07/19/18 15:20 Baso # (Auto) 0.0 K/uL (0.0-0.2) 07/19/18 15:20 PT 14.9 SECONDS (9.7-12.2) H 07/19/18 15:20 INR 1.4 07/19/18 15:20 APTT 41 SECONDS (21-34) H 07/19/18 15:20 Sodium 134 mmol/L (132-148) 07/19/18 14:33 Potassium 4.9 mmol/L (3.6-5.2) 07/19/18 14:33 Chloride 93 mmol/L (98-107) L 07/19/18 14:33 Carbon Dioxide 30 mmol/L (22-30) 07/19/18 14:33 Anion Gap 16 (10-20) 07/19/18 14:33 BUN 47 mg/dL (7-17) H 07/19/18 14:33 Creatinine 5.8 mg/dL (0.7-1.2) H 07/19/18 14:33 Est GFR ( Amer) 9 07/19/18 14:33 Est GFR (Non-Af Amer) 7 07/19/18 14:33 Random Glucose 80 mg/dL (65-105) D 07/19/18 14:33 Calcium 8.4 mg/dl (8.6-10.4) L 07/19/18 14:33 Magnesium 1.9 mg/dL (1.6-2.3) 07/19/18 15:20 Total Bilirubin 0.9 mg/dL (0.2-1.3) 07/19/18 14:33 AST 36 U/L (14-36) D 07/19/18 14:33 ALT 12 U/L (9-52) 07/19/18 14:33 Alkaline Phosphatase 78 U/L (38-126) 07/19/18 14:33 Total Protein 8.1 g/dL (6.3-8.3) 07/19/18 14:33 Albumin 3.9 g/dL (3.5-5.0) 07/19/18 14:33 Globulin 4.3 gm/dL (2.2-3.9) H 07/19/18 14:33 Albumin/Globulin Ratio 0.9 (1.0-2.1) L 07/19/18 14:33 Blood Type AB POSITIVE 07/19/18 15:22 Antibody Screen Negative 07/19/18 15:22 Discharge Plan - Follow Up Plan Condition: GOOD Disposition: HOME/ ROUTINE Instructions: Dialysis Diet , Hemodialysis (DC), Anemia of Chronic Disease (DC) Additional Instructions: Discharge patient home, follow up with primary Primary Care Doctor, continue all home medications. Referrals: Madisyn Richey MD [Staff Provider] - Boaz Rodriguez MD [Staff Provider] - Anand Smith MD [Staff Provider] - Gloria Quarles MD [Staff Provider] -
--- NOTE | 2018-07-21 | CON ---
DATE: 07/20/2018 CHIEF COMPLAINT AND REASON FOR CONSULTATION: The patient was referred by Dr. Richey for evaluation and co-management. The patient has history of depression, anxiety, multiple psych meds. HISTORY OF PRESENT ILLNESS: The patient is a 63-year-old female who is a patient to me for many years as an outpatient, history of depression and anxiety, history of anemia, hypertension, endstage renal disease, on dialysis. The patient followed by Dr. Smith. The patient was admitted here for abnormal labs. She was noted have very low hemoglobin level 7.4, has been complaining of increasing dizziness and weakness. The patient referred co-management as the patient has multiple psych meds. She has history of depression and anxiety. She has been going to my office last several years and has been taking multiple psych meds. The patient was taking Ambien 10 mg at bedtime, Effexor 150 in the morning and 75 at bedtime. The patient also is on Klonopin 1 mg p.o. b.i.d. and 2 mg at bedtime and Seroquel 600 mg at bedtime. She has been stabilized with these medicines for year but states that she has been sleeping well with that. The patient has history of chronic insomnia. Today when seen, she is feeling much better but states that she is seeing medical claims manager because of her anemia. PAST PSYCHIATRIC HISTORY: As stated, history of depression and anxiety, has been taking medications for years. The patient has been followed by Dr. Richey. She also states she sees Dr. Smith for kidney problems. ALLERGIES: THE PATIENT IS ALLERGIC TO CODEINE, IODINE, OXYCODONE, AND SEA FOOD. MEDICAL HISTORY: As stated, the patient has history of UTI, hypertension, endstage renal disease, anemia, history of chronic insomnia, thyroid problems, hyperlipidemia, TIA. PSYCHOSOCIAL HISTORY: The patient lives alone with some home care services. PHYSICAL EXAMINATION: VITAL SIGNS: Temperature 97.8, pulse 91, blood pressure 134/74, respirations 20, oxygen saturation 97%. LIST OF CURRENT MEDICATIONS: The patient is on Ambien, Bystolic, rosuvastatin, Effexor 150 in the morning and 75 in the afternoon, Klonopin 1 mg b.i.d. and 2 mg at bedtime. The patient is on Seroquel 600 mg daily, Synthroid. REVIEW OF SYSTEM: GENERAL: The patient is alert and oriented x3, seen in her room, conversing in Pashto and [place]an, and she is feeling weak. SKIN: No diaphoresis. HEENT: Complaining of dizziness. No blurring of vision. NECK: Supple. RESPIRATORY: No dyspnea. CARDIOVASCULAR: No chest pain. GASTROINTESTINAL: No nausea. No vomiting. EXTREMITIES: The patient is ambulatory. MUSCULOSKELETAL: Feels weak. NEUROLOGIC: Alert and oriented x3. GENITOURINARY: No dysuria. The patient states that she is okay with her psych meds, although the patient continues to have persistent dizziness, I am trying to lower her Seroquel. MENTAL STATUS EXAMINATION: Elderly female, looks stated age, oriented x3. Mood is dysphoric. Affect is reactive. Speech is spontaneous. Thought process is coherent. Thought content, no overt psychosis. No suicidal or homicidal ideation. Attention and memory seems to be fair. Insight and judgment fair. Impulse control is fair. IMPRESSION: Major depression, recurrent with psychosis; anxiety disorder; history of endstage renal disease, on dialysis; anemia. PLAN AND RECOMMENDATION: Patient seen, meds reviewed. We will continue present psych meds. We will keep her on Ambien 5 mg at bedtime p.r.n. instead of her usual 10 mg at bedtime standing as well as continue the Klonopin, Effexor, and Seroquel. We will monitor her blood pressure as well as if the patient continues to have dizziness, I will try to lower down her Seroquel as the patient is taking high dose of Seroquel for depression and anxiety but she also needed this as history of chronic insomnia as well as severe anxiety with Seroquel has helped her in the past. Boaz Gallegos MD MTDVignesh
--- NOTE | 2018-07-22 13:06 | CARD ---
APPROVED REPORT Date of service: 07/19/2018 EKG Measurement Heart [id number] [id number] <Conclusion> Normal sinus rhythm Voltage criteria for left ventricular hypertrophy Anterolateral infarct, age undetermined Abnormal ECG
== END 2018-07-20 19:50 | disposition home or self-care (01) | DRG 682 ==
LOC: C.ER 13:07 → C.9E 15:38 → C.5S 19:00
PROVIDERS: ADMIT Internal Medicine; ATTEND Internal Medicine
PROC: 5A1D70Z Performance of Urinary Filtration, Intermittent, Less than 6 Hours Per Day (ICD-10-PCS; principal; 2018-07-20)
DX: I12.0 Hypertensive chronic kidney disease with stage 5 chronic kidney disease or end stage renal disease (principal); N18.6 End stage renal disease; F33.3 Major depressive disorder, recurrent, severe with psychotic symptoms; N25.81 Secondary hyperparathyroidism of renal origin; D63.8 Anemia in other chronic diseases classified elsewhere; E03.9 Hypothyroidism, unspecified; E78.5 Hyperlipidemia, unspecified; G89.29 Other chronic pain; Z86.73 Personal history of transient ischemic attack (TIA), and cerebral infarction without residual deficits; F41.9 Anxiety disorder, unspecified; E83.39 Other disorders of phosphorus metabolism; Z99.2 Dependence on renal dialysis; D63.1 Anemia in chronic kidney disease

== ENCOUNTER 2018-09-23 12:59 | Emergency (ER) | payer MEDICARE, OTHER ==
[2018-09-23 12:59] VITALS: BMI 31.6
[2018-09-23 13:10] VITALS: BP 134/82; PULSE 96; RESP 17; TEMP 98; O2SAT 96
[2018-09-23 13:44] LABS: SQUAMOUS EPITHIAL 21 /hpf (0-5); URINE BACTERIA OCC (<OCC); URINE BILIRUBIN NEGATIVE (NEGATIVE); URINE BLOOD 1+ (NEGATIVE); URINE CLARITY Hazy (Clear); URINE COLOR Yellow (YELLOW); URINE GLUCOSE (UA) 2+ mg/dL (Normal); URINE LEUKOCYTE ESTERASE NEG Leu/uL (Negative); URINE PROTEIN 2+ mg/dL (NEGATIVE); URINE UROBILINOGEN NORMAL mg/dL (0.2-1.0)
[2018-09-23 13:58] LABS: BASO % 0.8 % (0.0-2.0); EOS # 0.1 K/uL (0.0-0.7); EOS % 3.1 % (0.0-4.0); LYMPH # 0.6 K/uL (1.0-4.3); LYMPH % 20.6 % (20.0-40.0); MEAN CORPUSCULAR HEMOGLOBIN 32.4 pg (27.0-31.0); MEAN CORPUSCULAR HGB CONC 32.7 g/dL (33.0-37.0); MEAN PLATELET VOLUME 10.8 fL (7.2-11.7); MONO # 0.2 K/uL (0.0-0.8); MONO % 6.6 % (0.0-10.0); NEUT % 68.9 % (50.0-75.0); RBC 2.92 Mil/uL (3.80-5.20); RED CELL DISTRIBUTION WIDTH 14.9 % (11.5-14.5); WHITE BLOOD COUNT 2.9 K/uL (4.8-10.8)
[2018-09-23 14:06] LABS: HEMOGLOBIN 9.5 g/dL (11.0-16.0)
--- NOTE | 2018-09-23 14:12 | C.PDOC ---
History Of Present Illness 63 years old female presents to ED for complaints of right posterior rib area pain that worsens when laying ontop of the area. Patient reports she massaged it with bengay with no improvement. Patient has PMHx of ESRD (on dialysis M,W,F) and completed a full session 2 days ago. Patient also reports seeing scant blood when she wiped 2 days ago. Patient states she is unsure whether it was from vagina or urine but since then has normalized. Denies any other complaints. Time Seen by Provider: 09/23/18 13:23 Chief Complaint (Nursing): Back Pain History Per: Patient History/Exam Limitations: no limitations Current Symptoms Are (Timing): Still Present Previous Symptoms: None Associated Symptoms: None Exacerbating Factor(s): Other (Laying ontop of area ) Recent travel outside of the [place]: No Past Medical History Reviewed: Historical Data, Nursing Documentation, Vital Signs Vital Signs: Last Vital Signs Temp 98.0 F 09/23/18 13:05 Pulse 96 H 09/23/18 13:05 Resp 17 09/23/18 13:05 BP 134/82 09/23/18 13:05 Pulse Ox 96 09/23/18 13:05 - Medical History PMH: Anemia, Anxiety, Arthritis, Bipolar Disorder, Colonic Polyps, Depression, Gastritis, HTN, Hypercholesterolemia, Hypothyroidism, Kidney Stones, Migraine, End Stage Renal Disease, Chronic Kidney Disease - [facility] Procedures (07/19/18) INDIVID PSYCHOTHERAP NEC (12/24/13) OTHER GROUP THERAPY (12/24/13) PACKED CELL TRANSFUSION (12/12/12) PSYCHIAT DRUG THERAP NEC (12/24/13) Family History: States: No Known Family Hx - Social History Hx Tobacco Use: No Hx Alcohol Use: No Hx Substance Use: No - Immunization History Hx Tetanus Toxoid Vaccination: (unk) Hx Influenza Vaccination: Yes Hx Pneumococcal Vaccination: Yes Review Of Systems Except As Marked, All Systems Reviewed And Found Negative. Constitutional: Negative for: Fever, Chills Gastrointestinal: Negative for: Nausea, Vomiting, Abdominal Pain, Diarrhea Musculoskeletal: Positive for: Other (Right posterior rib area pain ) Skin: Negative for: Rash Neurological: Negative for: Weakness, Numbness Physical Exam - Physical Exam Appears: Non-toxic, No Acute Distress, Other (Reading a magazine. Obese ) Skin: Normal Color, Warm, No Rash Head: Atraumatic, Normacephalic Eye(s): bilateral: Normal Inspection, PERRL, EOMI Oral Mucosa: Moist Neck: Normal ROM, Supple Chest: Symmetrical, Tenderness (Intercostal tenderness) Cardiovascular: Rhythm Regular Respiratory: Normal Breath Sounds, No Rales, No Rhonchi, No Wheezing Gastrointestinal/Abdominal: Soft, No Tenderness Back: Other (Right flank T5- T8 tenderness. ) Extremity: Normal ROM Extremity: Bilateral: Atraumatic, Normal Color And Temperature, Normal ROM Pulses: Left Radial: Normal, Right Radial: Normal Neurological/Psych: Oriented x3, Normal Speech Gait: Steady ED Course And Treatment - Laboratory Results Result Diagrams: 09/23/18 13:53 09/23/18 13:53 Lab Results: Urine Color Yellow (YELLOW) 09/23/18 13:34 Urine Clarity Hazy (Clear) 09/23/18 13:34 Urine pH 8.0 (5.0-8.0) 09/23/18 13:34 Ur Specific [place] 1.010 (1.003-1.030) 09/23/18 13:34 Urine Protein 2+ mg/dL (NEGATIVE) H 09/23/18 13:34 Urine Glucose (UA) 2+ mg/dL (Normal) H 09/23/18 13:34 Urine Ketones Negative mg/dL (NEGATIVE) 09/23/18 13:34 Urine Blood 1+ (NEGATIVE) H 09/23/18 13:34 Urine Nitrate Negative (NEGATIVE) 09/23/18 13:34 Urine Bilirubin Negative (NEGATIVE) 09/23/18 13:34 Urine Urobilinogen Normal mg/dL (0.2-1.0) 09/23/18 13:34 Ur Leukocyte Esterase Neg Scottie/uL (Negative) 09/23/18 13:34 Urine WBC (Auto) 8 /hpf (0-5) H 09/23/18 13:34 Urine RBC (Auto) 9 /hpf (0-3) H 09/23/18 13:34 Ur Squamous Epith Cells 21 /hpf (0-5) H 09/23/18 13:34 Urine Bacteria Occ (<OCC) H 09/23/18 13:34 Lab Interpretation: Abnormal (baseline for HD pt) O2 Sat by Pulse Oximetry: 96 (RA) Pulse Ox Interpretation: Normal - Radiology CXR: Interpreted by Me CXR Interpretation: Yes: No Acute Disease - Other Rad abd x 2 X-Ray: Interpreted by Me (+FOS) Abdomen Obstructive Series X-Ray X-Ray: Viewed By Me, Read By Radiologist Interpretation: IMPRESSION: Unremarkable radiographs of chest and abdomen. No evidence of mechanical bowel obstruction. Reevaluation Time: 14:25 Reassessment Condition: Improved (remains apparently asymptomatic, sleeping in ED 6) Medical Decision Making Medical Decision Making: Plan: * Motrin * Blood work * Urinalysis * Obstructive series X-Ray constipation R colon vs + costochondritis R lateral rib area T5-T8, no zoster laxatives, NSAIDS Disposition Doctor Will See Patient In The: Office Counseled Patient/Family Regarding: Studies Performed, Diagnosis - Disposition Referrals: Madisyn Richey MD [Staff Provider] - Disposition: HOME/ ROUTINE Disposition Time: 14:26 Condition: GOOD Additional Instructions: dolor del pared del pecho derecho bolsa de hielo 1/2 hora por hora, nada caliente ibuprofeno/Advil 400-600 mg cada 6 horas zenobia necessario Constipation: thaddeus un purgante (que puede dana pacientes con Dialysis) cuidados de dieta Instructions: Costochondritis, Constipation, Adult (DC) Forms: [employer] (Barbadian) Print Language: MALAY - Clinical Impression Clinical Impression: Chest wall discomfort - Scribe Statement The provider has reviewed the documentation as recorded by the Scribe Jaylyn Medrano All medical record entries made by the Scribe were at my direction and personally dictated by me. I have reviewed the chart and agree that the record accurately reflects my personal performance of the history, physical exam, medical decision making, and the department course for this patient. I have also personally directed, reviewed, and agree with the discharge instructions and disposition.
[2018-09-23 14:13] LABS: ALB/GLOB RATIO 1.3 (1.0-2.1); ALBUMIN 3.9 g/dL (3.5-5.0); CALCIUM 8.2 mg/dl (8.6-10.4)
--- NOTE | 2018-09-23 14:46 | RAD ---
Date of service: 09/23/2018 PROCEDURE: Radiographs of the chest and abdomen (obstructive series) HISTORY: abd pain COMPARISON: No prior. TECHNIQUE: AP radiograph of the chest, with upright and supine radiographs of the abdomen. FINDINGS: CHEST: Lungs: Clear. Cardiovascular: Normal size heart. No pulmonary vascular congestion. No aortic atherosclerotic calcification present Pleura: No pleural fluid. No pneumothorax. Other findings: None. ABDOMEN AND PELVIS: Bowel: Unremarkable bowel gas pattern. No evidence of mechanical obstruction. Free air: None. Bones: Unremarkable. Other findings: There is a gastric band noted in place. Postsurgical changes are also noted at the left upper abdomen. IMPRESSION: Unremarkable radiographs of chest and abdomen. No evidence of mechanical bowel obstruction.
== END 2018-09-23 14:50 | disposition home or self-care (01) ==
LOC: C.ER 12:59
DX: R07.89 Other chest pain (principal)

== ENCOUNTER 2018-12-06 16:38 | Emergency (ER) | payer MEDICARE, OTHER ==
[2018-12-06 16:39] VITALS: BMI 31.6
[2018-12-06 16:48] VITALS: BP 158/81; PULSE 91; RESP 17; TEMP 97.6; O2SAT 95
--- NOTE | 2018-12-06 17:21 | C.PDOC ---
History Of Present Illness 63 year old female who presents to the ED with vague musculoskeletal pain in the right upper arm, right shoulder, right upper and medial scapula for the past 10 days after a fall from standing that resulted in patient hitting a bureau in her bedroom. Patient reports that she didn't fall to the ground and denies any LOC or immediate pain. Patient does not take Motrin due to thrombocytopenia and dialysis or Tylenol because she states it does not work. She has been applying heating pad and taking hot showers without improvement. Time Seen by Provider: 12/06/18 16:54 Chief Complaint (Nursing): Back Pain History Per: Patient History/Exam Limitations: no limitations Onset/Duration Of Symptoms: Days (10) Current Symptoms Are (Timing): Still Present Recent travel outside of the [place]: No Additional History Per: Patient Past Medical History Reviewed: Historical Data, Nursing Documentation, Vital Signs Vital Signs: Last Vital Signs Temp 97.6 F 12/06/18 16:43 Pulse 91 H 12/06/18 16:43 Resp 17 12/06/18 16:43 BP 158/81 H 12/06/18 16:43 Pulse Ox 95 12/06/18 16:43 Primary Care Provider: Madisyn Richey - Medical History PMH: Anemia, Anxiety, Arthritis, Bipolar Disorder, Colonic Polyps, Depression, Gastritis, HTN, Hypercholesterolemia, Hypothyroidism, Kidney Stones, Migraine, End Stage Renal Disease, Chronic Kidney Disease Denies: Diabetes, Hepatitis Surgical History: No Surg Hx - [facility] Procedures (07/19/18) INDIVID PSYCHOTHERAP NEC (12/24/13) OTHER GROUP THERAPY (12/24/13) PACKED CELL TRANSFUSION (12/12/12) PSYCHIAT DRUG THERAP NEC (12/24/13) Family History: States: Unknown Family Hx - Social History Hx Tobacco Use: No Hx Alcohol Use: No Hx Substance Use: No - Immunization History Hx Tetanus Toxoid Vaccination: No Hx Influenza Vaccination: Yes Hx Pneumococcal Vaccination: Yes Review Of Systems Constitutional: Negative for: Fever, Chills Cardiovascular: Negative for: Chest Pain Respiratory: Negative for: Shortness of Breath Musculoskeletal: Positive for: Arm Pain (right upper arm, right shoulder, right upper and medial scapula) Neurological: Negative for: Weakness, Numbness Physical Exam - Physical Exam Appears: Non-toxic, No Acute Distress, Other (obese female ) Skin: No Rash Head: Atraumatic, Normacephalic Eye(s): bilateral: Normal Inspection Oral Mucosa: Moist Neck: Normal ROM, Supple Chest: Symmetrical, No Deformity, No Tenderness (right rib ) Cardiovascular: Rhythm Regular, No Murmur Respiratory: Normal Breath Sounds, No Rales, No Rhonchi, No Wheezing Gastrointestinal/Abdominal: Soft, No Tenderness Extremity: Normal ROM (painless ROM passive and active ), Tenderness (No digitally reproducible pain to right shoulder. ), No Swelling Neurological/Psych: Oriented x3, Normal Speech, Normal Cognition ED Course And Treatment O2 Sat by Pulse Oximetry: 95 (on RA) Pulse Ox Interpretation: Normal Medical Decision Making Medical Decision Making: Plan: Tylenol 975mg PO 17:15. Discussed with Dr. Richey. Patient was seen in office 2 days ago with the same recommendations. Okay to discharge patient home without workup. superficial contusion 10 days ago normal exam worse discomfort with persistent heat therapies ice/tylenol educated Dialysis pt normal exam no fluid overload, no leg edema ok for HD in AM Disposition Doctor Will See Patient In The: Office Counseled Patient/Family Regarding: Studies Performed, Diagnosis - Disposition Referrals: Madisyn Richey MD [Staff Provider] - Disposition: HOME/ ROUTINE Disposition Time: 17:20 Condition: GOOD Additional Instructions: JENNA de usar cualquier tratamiento caliente Bolsa de [place] 1/2 hora por hora. Tylenol 1000 mg cada 6 horas zenobia necessario Instructions: Contusion (DC) Forms: [facility] (Luxembourgish) Print Language: TURKISH - Clinical Impression Clinical Impression: Musculoskeletal arm pain - Scribe Statement The provider has reviewed the documentation as recorded by the Hilaria Campos All medical record entries made by the Scribe were at my direction and personally dictated by me. I have reviewed the chart and agree that the record accurately reflects my personal performance of the history, physical exam, medical decision making, and the department course for this patient. I have also personally directed, reviewed, and agree with the discharge instructions and disposition.
== END 2018-12-06 17:35 | disposition home or self-care (01) ==
LOC: C.ER 16:38
DX: M79.601 Pain in right arm (principal); I10 Essential (primary) hypertension